=== PATIENT | male | born 1970 | race American Indian/Alaskan Native ===

== ENCOUNTER 2022-03-14 09:40 | Inpatient (IN) ==
[2022-03-14 11:45] LABS: Basophils # (auto) 0.06 K/uL (0-0.2); Basophils % (auto) 0.5 %; Eosinophils # (auto) 0.49 K/uL (0-0.5); Hematocrit (blood only) 38.5 % (42-52); Hemoglobin 12.6 g/dL (14.0-18.0); INR 1.2 (0.9-1.1); Immature Granulocytes % (auto) 0.8 %; Lymphocytes # (auto) 1.24 K/uL (1.2-3.4); Lymphocytes % (auto) 10.1 %; Mean Corpuscular Hemoglobin 25.9 pg (25-34); Mean Corpuscular Hgb Conc 32.7 g/dL (32-36); Mean Corpuscular Volume 79.2 fL (80-100); Mean Platelet Volume 10.3 fL (7.4-10.4); Monocytes # (auto) 1.14 K/uL (0.11-0.59); Monocytes % (auto) 9.3 %; Neutrophils # (auto) 9.27 K/uL (1.4-6.5); Neutrophils % (auto) 75.3 %; Partial Thromboplastin Time 27.6 Seconds (21.0-31.0); Platelet Count 210 K/uL (130-400); Prothrombin Time 12.6 Seconds (9.0-12.0); RDW Coefficient of Variation 14.4 % (11.5-14.5); RDW Standard Deviation 40.8 fL (36.4-46.3); Red Blood Count 4.86 M/uL (4.7-6.1)
[2022-03-14 11:51] LABS: Albumin Globulin Ratio 1.5 (0.9-2); Albumin Level 4.5 gm/dl (3.4-5.0); Bilirubin,Total 0.4 mg/dl (0.2-1.0); Calcium 9.3 mg/dl (8.5-10.1); Creatinine Clr Calc Pharmacy 102.4 ml/min; Est GFR (African American) 121.8 ml/min; Est GFR (Non-African American) 105.1 ml/min; Globulin 3.1 gm/dl (2.5-4.0); Potassium 4.2 mmol/L (3.5-5.1); Total Protein 7.6 gm/dl (6.0-8.3)
[2022-03-14] MEDS ORDERED: OPTIRAY 320 125ml IV ONE (13:12)
--- NOTE | 2022-03-14 13:41 | CT Scan Report ---
CT angio chest PE protocol CLINICAL HISTORY: Shortness of breath with exertion. COMPARISON STUDY: No previous studies for comparison. CT DOSE: 302.58 mGy.cm TECHNIQUE: CT Angio of the chest was performed.followed by image post processing with coronal, and s agittal MIP reformats. Contrast Volume: Optiray 320, 120 ml FINDINGS: Vasculature: Large intraluminal filling defects are present within the right and left main pulmonary arteries with extension into the lower lobe pulmonary arteries bilaterally. This also right upper lob e pulmonary emboli. Airway: The airway is clear. No endobronchial lesion is identified. Lungs: There is a large, solid, slightly spiculated left upper lobe mass measuring at least 3.6 x 3.3 cm. The findings are most characteristic of lung cancer. The remainder of the lungs are clear of acu te alveolar opacities, air bronchograms or additional pulmonary nodules. Pleura: There is no evidence for pleural effusion. There is no evidence for pneumothorax. Mediastinum: There is no evidence for pathologic adenopathy. There is no evidence for right heart str ain. The heart size is within normal limits. The thoracic aorta is within normal limits. There is no evidence for pericardial effusion. Upper abdomen:The adrenal glands were not fully included on this study. Osseous structures: There are multiple lytic lesions seen throughout the thoracic spine most charact eristic of metastatic disease. Impression: 1. Positive CTA for pulmonary emboli within both main pulmonary arteries, both lower lobe pulmonary a rteries and right upper lobe pulmonary artery. 2. No evidence for right heart strain. 3. 3.6 cm solid spiculated left upper lobe mass most characteristic of lung cancer. 4. Lytic lesions within the spine characteristic of metastatic bone disease. ACT 112: Negative or not required by law. Electronically signed by: Brandon Farfan M.D. 03/14/2022 1:38 PM
--- NOTE | 2022-03-14 14:09 | Ultrasound Report ---
US venous doppler LE RT CLINICAL HISTORY: Right lower extremity swelling, erythema and pain COMPARISON: None available at the time of this dictation. TECHNIQUE: Right lower extremity real-time compression venous ultrasound with Color Doppler imaging. Utilizing real-time ultrasonic imaging multiple real time high-resolution ultrasonic images with comp ression and noncompression maneuvers of the deep venous system in addition to color doppler imaging w ere performed from the common femoral vein through the proximal calf veins. FINDINGS: There is extensive thrombus present within the common femoral, superficial femoral, popliteal and pos terior tibial veins. This also superficial thrombophlebitis seen within the greater saphenous vein. Impression: Extensive deep venous thrombosis throughout the right lower extremity. ACT 112: Negative or not required by law. Electronically signed by: Brandon Farfan M.D. 03/14/2022 2:08 PM
[2022-03-14] MEDS ORDERED: Heparin IV Adult Wt-Based Standard WITH Bolus Protocol IV STA (14:29)
[2022-03-14] MEDS ORDERED: HEPARIN SOD (PORCINE) 1000 UNIT/ML IV ONE (14:46)
--- NOTE | 2022-03-14 15:06 | History & Physical Report ---
Date of Service March 14, 2022 Assessment & Plan (1) DVT (deep venous thrombosis): Plan: EXTENSIVE DVTs of the RLE involving most of the deep veins. There is associated extensive PEs on CT chest imaging. He has had dyspnea for 4+ weeks thus he has had VTE for some time. It appears he has lung cancer with metastatic disease which is the likely reason for his extensive DVTs/PEs. Already initiated on heparin drip by the ER. Will continue for now. Ultimately would recommend lovenox 1mg/kg BID after any procedures are completed this admission. Given the extent of his VTE I am uncertain if he is a DOAC candidate. (2) Pulmonary emboli: Plan: As seen on CTA chest. Extensive b/l. See #1 above. (3) Lung mass: Plan: CLAUDE spiculated mass highly concerning for lung cancer. There appear to be bony mets of the spine as well. Will obtain CT abd/pelvis with contrast to check for intra-abdominal metastatic disease as well. With respect to biopsy - possible sites include the actual CLAUDE mass itself vs a spinal met vs a liver met (if some are found) vs other. Will ask both pulmonary & heme/onc to see in consult. (4) Bone metastases: Plan: As seen on imaging. [place] prn pain. Low threshold to liberalize the pain meds as needed for optimal pain relief. (5) Cellulitis of leg, right: Plan: The erythema of the RLE is most likely due to DVT and superficial phlebitis. I cannot 100% exclude an early cellulitis, however. To be safe will add rocephin 2gm daily. Serial exams. Plan: Patient made aware of the DVTs, PEs, CLAUDE lung mass, and ?bone mets of the spine. All questions answered. Will await consults from oncology, pulmonary, etc. History of Present Illness Chief Complaint: dyspnea, right leg swelling/pain Primary Care Provider: NO PCP Very pleasant 51yo male with no PMH presents with 1-2 months of intermittent low back pain, 1-2 months of intermittent swelling of the b/l LEs (RLE >LLE), 1 month of dyspnea on exertion, and 2-3 days of worsening redness of the right leg. Had seen outpatient providers intermittently in the last 1-2 months for the back pain (chiropractor, accupuncture, etc) and the pain indeed did improve. His swelling of the legs also improved. However, about 10 days ago, the RLE began to swell again, and then became quite painful 2-3 days ago. He visited a local urgent care in [place] today and given his symptoms they advised urgent visitation to the [facility] ER. Just before my assessment imaging returned showing extensive RLE DVT, b/l PEs, and a CLAUDE lung mass. Heparin drip was initiated. Allergies Allergy/AdvReac Type Severity Reaction Status Date / Time No Known Allergies Allergy Unverified 03/14/22 11:56 Home Medications Medication Instructions Recorded Confirmed Type No Known Home Medications 03/14/22 03/14/22 History Past Med/Surg History Medical History (Updated 03/14/22 @ 18:15 by Suzanne Vazquez PA-C) No pertinent past medical history Surgical History (Updated 03/14/22 @ 15:42 by Guanakito Teixeira) No pertinent past surgical history Family History (Updated 03/14/22 @ 15:43 by Guanakito Teixeira) Father , age 82 COPD (chronic obstructive pulmonary disease) Mother , age 82 Myocardial infarction Social History (Updated 03/14/22 @ 15:43 by Guanakito Teixeira) Smoking Status: Never smoker Hx Alcohol Use: Yes Alcohol type: beer and wine Alcohol Intake Frequency: Monthly or Less Hx Substance Use: No Preferred Language: Bulgarian Communication Ability: Effective Client Service Representative Required: No Beliefs That Will Affect Care: None marital status: Current Living Situation: Spouse current occupational status: employed 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[employer]; 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 How many Children do You have: 0 Other Information That Helps Us Care for You: No Feels Safe at Home: Yes Safety Concerns: Feels Safe At This Time Assistive Devices: Glasses Assistive Devices Comment: reading Review of Systems Review of Systems: gen - no fevers or chills; no weight loss; appetite has been good eyes - no recent visual change HENT - no dysphagia, no URI symptoms CV - right lower chest wall pain with taking breaths, no substernal pain; no orthopnea; extensive edema of RLE pulm - no cough; ongoing FREEMAN x 1 month at minimum GI - no nausea, emesis or diarrhea; no blood per rectum - no dysuria musculo - intermittent low back pain x 1-2 months, then improved and essentially resolved now skin - redness and warmth right thigh x a few days psych - anxiety neuro - no radicular symptoms or numbness; "weakness" of RLE due to edema endo - no diabetes Physical Exam Physical Exam: gen - NAD, pleasant eyes - PERRL HENT - nose clear, mouth with MMM neck - supple, no lymphadenopathy, no masses CV - RRR, s1 s2, no murmur lungs - CTA b/l, no increased work of breathing abd - soft, NT, ND, BS+, no HSM ext - extensive edema of right thigh (and mild edema right st/ankle); warm to palpation right thigh with erythema; left leg grossly normal in appearance; pulses 2+ b/l skin - erythema of medial right thigh extending to anterior thigh; mild erythema tibial plateau region; warm to touch neuro - strength 5/5 x 4 exts, DTRs 2+ b/l psych - a/o x 3 lymph - no cervical lymph nodes b/l Results & Data Results & Data ([facility]) Vital Signs (Past 12 Hours) Vital Signs Temp Pulse Pulse Resp BP BP Pulse Ox 03/14/22 13:00 83 19 149/97 H 100 03/14/22 12:30 89 18 144/99 H 99 03/14/22 12:00 82 15 139/104 H 99 03/14/22 11:30 81 16 146/96 H 98 03/14/22 11:00 88 24 146/91 H 100 03/14/22 10:30 85 17 141/96 H 99 03/14/22 10:15 89 20 155/89 H 99 03/14/22 10:10 90 21 99 03/14/22 09:47 36.6 C 101 H 18 156/94 H 99 Laboratory Results Laboratory Results - last 24 hr 03/14/22 03/14/22 03/14/22 11:21 11:21 11:21 WBC 12.30 H RBC 4.86 Hgb 12.6 L Hct 38.5 L MCV 79.2 L MCH 25.9 MCHC 32.7 RDW Std Deviation 40.8 RDW Coeff of Marizol 14.4 Plt Count 210 MPV 10.3 Immature Gran % (Auto) 0.8 Neut % (Auto) 75.3 Lymph % (Auto) 10.1 [place] % (Auto) 9.3 Eos % (Auto) 4.0 Baso % (Auto) 0.5 Neut # (Auto) 9.27 H Lymph # (Auto) 1.24 [place] # (Auto) 1.14 H Eos # (Auto) 0.49 Baso # (Auto) 0.06 Immature Gran # (Auto) 0.10 H PT 12.6 H INR 1.2 H APTT 27.6 PTT Ratio 1.0 Sodium 138 Potassium 4.2 Chloride 101 Carbon Dioxide 29 Anion Gap 8 BUN 10 Creatinine 0.77 Est Cr Clr Drug Dosing 102.4 Est GFR ( Amer) 121.8 Est GFR (Non-Af Amer) 105.1 BUN/Creatinine Ratio 13.0 Glucose 81 Calcium 9.3 Total Bilirubin 0.4 AST 45 H ALT 49 Alkaline Phosphatase 329 H Total Protein 7.6 Albumin 4.5 Globulin 3.1 Albumin/Globulin Ratio 1.5 SARS-CoV-2, RNA, NAAT 03/14/22 03/14/22 16:02 21:20 WBC RBC Hgb Hct MCV MCH MCHC RDW Std Deviation RDW Coeff of Marizol Plt Count MPV Immature Gran % (Auto) Neut % (Auto) Lymph % (Auto) [place] % (Auto) Eos % (Auto) Baso % (Auto) Neut # (Auto) Lymph # (Auto) [place] # (Auto) Eos # (Auto) Baso # (Auto) Immature Gran # (Auto) PT INR APTT 98.2 H* PTT Ratio 3.6 Sodium Potassium Chloride Carbon Dioxide Anion Gap BUN Creatinine Est Cr Clr Drug Dosing Est GFR ( Amer) Est GFR (Non-Af Amer) BUN/Creatinine Ratio Glucose Calcium Total Bilirubin AST ALT Alkaline Phosphatase Total Protein Albumin Globulin Albumin/Globulin Ratio SARS-CoV-2, RNA, NAAT NEGATIVE Diagnostic Findings Chest CTA 03/14/22 10:51 CT angio chest PE protocol CLINICAL HISTORY: Shortness of breath with exertion. COMPARISON STUDY: No previous studies for comparison. CT DOSE: 302.58 mGy.cm TECHNIQUE: CT Angio of the chest was performed.followed by image post processing with coronal, and sagittal MIP reformats. Contrast Volume: Optiray 320, 120 ml FINDINGS: Vasculature: Large intraluminal filling defects are present within the right and left main pulmonary arteries with extension into the lower lobe pulmonary arteries bilaterally. This also right upper lobe pulmonary emboli. Airway: The airway is clear. No endobronchial lesion is identified. Lungs: There is a large, solid, slightly spiculated left upper lobe mass measuring at least 3.6 x 3.3 cm. The findings are most characteristic of lung c ancer. The remainder of the lungs are clear of acute alveolar opacities, air bronchograms or additional pulmonary nodules. Pleura: There is no evidence for pleural effusion. There is no evidence for pneumothorax. Mediastinum: There is no evidence for pathologic adenopathy. There is no evidence for right heart strain. The heart size is within normal limits. The thoracic aorta is within normal limits. There is no evidence for pericardial effusion. Upper abdomen:The adrenal glands were not fully included on this study. Osseous structures: There are multiple lytic lesions seen throughout the thoracic spine most characteristic of metastatic disease. Impression: 1. Positive CTA for pulmonary emboli within both main pulmonary arteries, both lower lobe pulmonary arteries and right upper lobe pulmonary artery. 2. No evidence for right heart strain. 3. 3.6 cm solid spiculated left upper lobe mass most characteristic of lung cancer. 4. Lytic lesions within the spine characteristic of metastatic bone disease. ACT 112: Negative or not required by law. Electronically signed by: Brandon Farfan M.D. 03/14/2022 1:38 PM Venous Doppler Study 03/14/22 10:51 US venous doppler LE RT CLINICAL HISTORY: Right lower extremity swelling, erythema and pain COMPARISON: None available at the time of this dictation. TECHNIQUE: Right lower extremity real-time compression venous ultrasound with Color Doppler imaging. Utilizing real-time ultrasonic imaging multiple real time high-resolution ultrasonic images with compression and noncompression maneuvers of the deep venous system in addition to color doppler imaging were performed from the common femoral vein through the proximal calf veins. FINDINGS: There is extensive thrombus present within the common femoral, superficial femoral, popliteal and posterior tibial veins. This also superficial thrombophlebitis seen within the greater saphenous vein. Impression: Extensive deep venous thrombosis throughout the right lower extremity. ACT 112: Negative or not required by law. Electronically signed by: Brandon Farfan M.D. 03/14/2022 2:08 PM EKG - my reading -- NSR, no ST changes Code Status & VTE Plan Code Status full code PG Care Time/CCT Total # of Minutes Spent Total Time Spent with Patient: Total time spent is greater than 50% in coordination of care (as documented) at patient's floor/unit and/or counseling patient: Coding Level of Care Code 87053 Initial Inpt Care Lvl 2 Diagnoses DVT (deep venous thrombosis) I82.409 Pulmonary emboli I26.99 Lung mass R91.8 Bone metastases C79.51 Cellulitis of leg, right L03.115
[2022-03-14] MEDS: HEPARIN SODIUM/DEXTROSE 25,000 UNITS/500 ML BAG IV SCH (15:18)
[2022-03-14] MEDS: Heparin IV Adult Wt-Based Standard WITH Bolus Protocol IV SCH ×3 (15:27→19:01)
--- NOTE | 2022-03-14 17:01 | Emergency Department Note ---
Impression & Plan DVT (deep venous thrombosis), Pulmonary emboli, Lung mass, Cellulitis of leg, right ED Provider Note CHIEF COMPLAINT: Right lower extremity pain, redness and swelling HISTORY OF PRESENT ILLNESS: Davin Ibanez is a 51 year old male with no significant past medical history who presents to the Emergency Department for evaluation of pain, redness and swelling to his right lower extremity which has become worse over the past 10 days. Prior to the time of onset, the patient states that he was having pain in his right hip for which he followed with a PCP. He did have x-rays ordered but has not yet had them taken. Since then, the patient states that his hip pain has seemed to have improved, however, he has now developed pain, redness and swelling in his left groin radiating into his medial thigh, down to his ankle. Currently, he rates his discomfort as a 6/10 which worsens with weight bearing activity. He has not attempted to take any medications for his discomfort. The patient does state that he has also been feeling more short of breath when attempting to exert himself over the past few weeks as well. He denies having dyspnea or specific chest pain. He also denies recent headaches, lightheadedness/dizziness, fevers/chills, palpitations, abdominal pain, nausea/vomiting, diarrhea or urinary symptoms. The patient does state that he has been sitting for long periods at a time (about 3.5 hours) while driving in the car for work quite often but otherwise denies prolonged periods of immobilization. He does not smoke. No known personal history of blood clots. REVIEW OF SYSTEMS: 10 systems were reviewed and were negative unless otherwise stated in HPI as above PHYSICAL EXAM: VITALS: Vitals are noted on the nurse's note and reviewed by myself. Hypertensive and mildly tachycardic, additional vital signs stable. General: Resting in bed, no acute distress HEENT: Normocephalic, atraumatic, PERRL, EOMI, mucous membranes moist, oropharynx clear Neck: Supple, no lymphadenopathy, non-tender Resp: Good inspiratory effort on room air, lung sounds clear bilaterally, chest wall non-tender CV: Mildly tachycardic rate, regular rhythm, normal S1-S2, peripheral pulses palpated Abd: Soft, non-tender MSK/Integumentary: With attention to the RLE, there is edema extending from the thigh down to the ankle with an area of erythema and warmth over the medial thigh, tender to palpation. ROM intact but with some discomfort, sensation and d/p pulse intact. No other skin changes, moving all other extremities without apparent pain or difficulty Neuro: Awake, alert and oriented x 3, interacting and answering questions appropriately Differential diagnosis includes musculoskeletal, DVT, cellulitis, PE, CHF, mass, carcinoma, vasculitis, venous insufficiency, among others were considered. EMERGENCY DEPARTMENT COURSE: Physical exam and history were performed. Nursing triage notes, EMR, and medication list were personally reviewed. Patient appears to have pain, redness and swelling to his right lower extremity which has been worsening over the past 10 days. He also notes exertional shortness of breath over the past few weeks as well. Additional history as described above. See physical exam as noted above. The patient was offered pain medication but declined. EKG was obtained and showed normal sinus rhythm at 83 bpm. No concern for ectopy or acute ischemic change. No previous studies available for comparison. IV access was established. Labs were obtained and reviewed by myself as below. Of note, he does have leukocytosis with a WBC of 12.30. Mild anemia with hemoglobin 12.6. PT was elevated at 12.6 seconds and INR elevated at 1.2. Electrolytes WNL. Renal indices stable. LFTs nondiagnostic. CTA chest was obtained and reviewed by radiologist and myself as below. Imaging did show pulmonary emboli within both main pulmonary arteries, both lower lobe pulmonary arteries and right upper lobe pulmonary artery. No evidence for right heart strain. There is also a 3.6 cm solid spiculated left upper lobe mass most characteristic of lung cancer. There is also lytic lesions within the spine characteristic of metastatic bone disease. Venous Doppler ultrasound of the right lower extremity was also obtained and showed an extensive deep venous thrombosis throughout the right lower extremity. Upon reevaluation, the patient was doing well. I discussed the results of the above findings with him at bedside including the new diagnosis of the bilateral PEs, lung mass, lytic lesions and RLE DVT. He was started on a heparin drip to initiate treatment. I then contacted Dr. Teixeira of the [facility] hospitalist group. He agreed to evaluate the patient for further management. The patient verbalized his understanding and agreement with the treatment plan as above. The chart was completed utilizing [employer] Voice Recognition Software. Grammatical errors, random word insertions, pronoun errors, and incomplete sentences are an occasional consequence of this system due to software limitations, ambient noise, and hardware issues. Any formal questions or concerns about the content, text, or information contained within the body of th is dictation should be directly addressed to the provider for clarification. Past Med/Surg History Medical History (Updated 03/14/22 @ 18:15 by Suzanne Vazquez PA-C) No pertinent past medical history Surgical History (Updated 03/14/22 @ 15:42 by Guanakito Teixeira) No pertinent past surgical history Family History (Updated 03/14/22 @ 15:43 by Guanakito Teixeira) Father , age 82 COPD (chronic obstructive pulmonary disease) Mother , age 82 Myocardial infarction Social History (Updated 03/14/22 @ 15:43 by Guanakito Teixeira) Smoking Status: Never smoker Hx Alcohol Use: Yes Alcohol type: wine Alcohol Intake Frequency: Monthly or Less Preferred Language: Tajik marital status: Current Living Situation: Spouse current occupational status: employed 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[employer]; 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 How many Children do You have: 0 Feels Safe at Home: Yes Allergies Allergies Allergy/AdvReac Type Severity Reaction Status Date / Time No Known Allergies Allergy Unverified 03/14/22 11:56 Home Meds Home Medications Medication Instructions Recorded Confirmed No Known Home Medications 03/14/22 03/14/22 Results & Data (ED) Vital Signs Vital Signs - 24 hr 03/14/22 09:47 03/14/22 10:10 03/14/22 10:15 Temperature 36.6 C Temperature Source Temporal Artery Scan Pulse Rate 101 H 90 Pulse Rate [Apical] 89 Pulse Rate from SpO2 Sensor 90 Respiratory Rate 18 21 20 Respiratory Effort / Characteristics Non-Labored Spontaneous Respiratory Depth Normal Respiratory Pattern Regular Blood Pressure 156/94 H Blood Pressure [Right Arm] 155/89 H Blood Pressure Mean 114 Blood Pressure Mean [Right Arm] 111 Blood Pressure Position Sitting Pulse Oximetry 99 99 99 Oxygen Delivery Method Room Air Room Air Sepsis Recent Fever Within 48 Hours No Sepsis New/Unexplained Change in Mental Status No Sepsis Action Taken by Nursing No Action Required 03/14/22 10:30 03/14/22 11:00 03/14/22 11:30 Temperature Temperature Source Pulse Rate 85 88 81 Pulse Rate [Apical] Pulse Rate from SpO2 Sensor 92 H 91 H 81 Respiratory Rate 17 24 16 Respiratory Effort / Characteristics Respiratory Depth Respiratory Pattern Blood Pressure 141/96 H 146/91 H 146/96 H Blood Pressure [Right Arm] Blood Pressure Mean 111 109 112 Blood Pressure Mean [Right Arm] Blood Pressure Position Pulse Oximetry 99 100 98 Oxygen Delivery Method Sepsis Recent Fever Within 48 Hours Sepsis New/Unexplained Change in Mental Status Sepsis Action Taken by Nursing 03/14/22 12:00 03/14/22 12:30 03/14/22 13:00 Temperature Temperature Source Pulse Rate 82 89 83 Pulse Rate [Apical] Pulse Rate from SpO2 Sensor 84 92 H 93 H Respiratory Rate 15 18 19 Respiratory Effort / Characteristics Respiratory Depth Respiratory Pattern Blood Pressure 139/104 H 144/99 H 149/97 H Blood Pressure [Right Arm] Blood Pressure Mean 115 114 114 Blood Pressure Mean [Right Arm] Blood Pressure Position Pulse Oximetry 99 99 100 Oxygen Delivery Method Sepsis Recent Fever Within 48 Hours Sepsis New/Unexplained Change in Mental Status Sepsis Action Taken by Nursing Laboratory Data Result diagrams: 03/14/22 11:21 03/14/22 11:21 Lab Results 03/14/22 03/14/22 03/14/22 Range/Units 11:21 11:21 11:21 WBC 12.30 H (4.8-10.8) K/uL RBC 4.86 (4.7-6.1) M/uL Hgb 12.6 L (14.0-18.0) g/dL Hct 38.5 L (42-52) % MCV 79.2 L (80-100) fL MCH 25.9 (25-34) pg MCHC 32.7 (32-36) g/dL RDW Std Deviation 40.8 (36.4-46.3) fL RDW Coeff of Marizol 14.4 (11.5-14.5) % Plt Count 210 (130-400) K/uL MPV 10.3 (7.4-10.4) fL Immature Gran % (Auto) 0.8 % Neut % (Auto) 75.3 % Lymph % (Auto) 10.1 % [place] % (Auto) 9.3 % Eos % (Auto) 4.0 % Baso % (Auto) 0.5 % Neut # (Auto) 9.27 H (1.4-6.5) K/uL Lymph # (Auto) 1.24 (1.2-3.4) K/uL [place] # (Auto) 1.14 H (0.11-0.59) K/uL Eos # (Auto) 0.49 (0-0.5) K/uL Baso # (Auto) 0.06 (0-0.2) K/uL Immature Gran # (Auto) 0.10 H (0.00-0.02) K/uL PT 12.6 H (9.0-12.0) Seconds INR 1.2 H (0.9-1.1) APTT 27.6 (21.0-31.0) Seconds PTT Ratio 1.0 Sodium 138 (136-145) mmol/L Potassium 4.2 (3.5-5.1) mmol/L Chloride 101 (98-107) mmol/L Carbon Dioxide 29 (21-32) mmol/L Anion Gap 8 (3-11) BUN 10 (6-23) mg/dl Creatinine 0.77 (0.6-1.4) mg/dl Est Cr Clr Drug Dosing 102.4 ml/min Est GFR ( Amer) 121.8 ml/min Est GFR (Non-Af Amer) 105.1 ml/min BUN/Creatinine Ratio 13.0 (10-20) Glucose 81 (70-99(Fasting)) mg/dl Calcium 9.3 (8.5-10.1) mg/dl Total Bilirubin 0.4 (0.2-1.0) mg/dl AST 45 H (13-39) U/L ALT 49 (7-52) U/L Alkaline Phosphatase 329 H (34-104) U/L Total Protein 7.6 (6.0-8.3) gm/dl Albumin 4.5 (3.4-5.0) gm/dl Globulin 3.1 (2.5-4.0) gm/dl Albumin/Globulin Ratio 1.5 (0.9-2) SARS-CoV-2, RNA, NAAT (NEGATIVE) 03/14/22 Range/Units 16:02 WBC (4.8-10.8) K/uL RBC (4.7-6.1) M/uL Hgb (14.0-18.0) g/dL Hct (42-52) % MCV (80-100) fL MCH (25-34) pg MCHC (32-36) g/dL RDW Std Deviation (36.4-46.3) fL RDW Coeff of Marizol (11.5-14.5) % Plt Count (130-400) K/uL MPV (7.4-10.4) fL Immature Gran % (Auto) % Neut % (Auto) % Lymph % (Auto) % [place] % (Auto) % Eos % (Auto) % Baso % (Auto) % Neut # (Auto) (1.4-6.5) K/uL Lymph # (Auto) (1.2-3.4) K/uL [place] # (Auto) (0.11-0.59) K/uL Eos # (Auto) (0-0.5) K/uL Baso # (Auto) (0-0.2) K/uL Immature Gran # (Auto) (0.00-0.02) K/uL PT (9.0-12.0) Seconds INR (0.9-1.1) APTT (21.0-31.0) Seconds PTT Ratio Sodium (136-145) mmol/L Potassium (3.5-5.1) mmol/L Chloride (98-107) mmol/L Carbon Dioxide (21-32) mmol/L Anion Gap (3-11) BUN (6-23) mg/dl Creatinine (0.6-1.4) mg/dl Est Cr Clr Drug Dosing ml/min Est GFR ( Amer) ml/min Est GFR (Non-Af Amer) ml/min BUN/Creatinine Ratio (10-20) Glucose (70-99(Fasting)) mg/dl Calcium (8.5-10.1) mg/dl Total Bilirubin (0.2-1.0) mg/dl AST (13-39) U/L ALT (7-52) U/L Alkaline Phosphatase (34-104) U/L Total Protein (6.0-8.3) gm/dl Albumin (3.4-5.0) gm/dl Globulin (2.5-4.0) gm/dl Albumin/Globulin Ratio (0.9-2) SARS-CoV-2, RNA, NAAT NEGATIVE (NEGATIVE) Administered Medications Heparin Sodium/Dextrose (Heparin Sodium/Dextrose) 25,000 units in 500 mls @ 24 mls/hr IV .[id number] [facility]; Protocol Stop: 04/13/22 14:59 Last Admin: 03/14/22 15:18 Dose: 1,200 units/hr, 24 mls/hr Documented by: [id number] Cosigned by: [id number] Discontinued Medications Heparin Sodium (Porcine) (Heparin Sod (Porcine) 1000 Unit/Ml) 1 units IV NOW ONE Stop: 03/14/22 14:47 Last Admin: 03/14/22 15:18 Dose: 5,000 units Documented by: [id number] Cosigned by: [id number] Heparin Sodium/Dextrose (Heparin Iv Adult Wt-Based Standard With Bolus Protocol) 1 ea IV NOW STA; Protocol Stop: 03/14/22 14:30 Last Admin: 03/14/22 15:25 Dose: Not Given Documented by: [id number] Heparin Sodium/Dextrose (Heparin Iv Adult Wt-Based Standard With Bolus Protocol) 1 ea IV Q20M SHEREEN; Protocol Stop: 04/13/22 14:31 Last Admin: 03/14/22 16:43 Dose: Not Given Documented by: [id number] Admin: 03/14/22 15:27 Dose: Not Given Documented by: [id number] Admin: 03/14/22 15:27 Dose: Not Given Documented by: [id number] Admin: 03/14/22 15:27 Dose: Not Given Documented by: [id number] Ioversol (Optiray 320 125ml) 120 ml IV ONCE ONE Stop: 03/14/22 13:13 Last Admin: 03/14/22 13:12 Dose: 120 ml Documented by: [id number] Imaging Data Radiologist's Impression: Chest CTA 03/14/22 10:51 CT angio chest PE protocol CLINICAL HISTORY: Shortness of breath with exertion. COMPARISON STUDY: No previous studies for comparison. CT DOSE: 302.58 mGy.cm TECHNIQUE: CT Angio of the chest was performed.followed by image post processing with coronal, and sagittal MIP reformats. Contrast Volume: Optiray 320, 120 ml FINDINGS: Vasculature: Large intraluminal filling defects are present within the right and left main pulmonary arteries with extension into the lower lobe pulmonary arteries bilaterally. This also right upper lobe pulmonary emboli. Airway: The airway is clear. No endobronchial lesion is identified. Lungs: There is a large, solid, slightly spiculated left upper lobe mass measuring at least 3.6 x 3.3 cm. The findings are most characteristic of lung cancer. The remainder of the lungs are clear of acute alveolar opacities, air bronchograms or additional pulmonary nodules. Pleura: There is no evidence for pleural effusion. There is no evidence for pneumothorax. Mediastinum: There is no evidence for pathologic adenopathy. There is no evidence for right heart strain. The heart size is within normal limits. The thoracic aorta is within normal limits. There is no evidence for pericardial e ffusion. Upper abdomen:The adrenal glands were not fully included on this study. Osseous structures: There are multiple lytic lesions seen throughout the thoracic spine most characteristic of metastatic disease. Impression: 1. Positive CTA for pulmonary emboli within both main pulmonary arteries, both lower lobe pulmonary arteries and right upper lobe pulmonary artery. 2. No evidence for right heart strain. 3. 3.6 cm solid spiculated left upper lobe mass most characteristic of lung cancer. 4. Lytic lesions within the spine characteristic of metastatic bone disease. ACT 112: Negative or not required by law. Electronically signed by: Brandon Farfan M.D. 03/14/2022 1:38 PM Venous Doppler Study 03/14/22 10:51 US venous doppler LE RT CLINICAL HISTORY: Right lower extremity swelling, erythema and pain COMPARISON: None available at the time of this dictation. TECHNIQUE: Right lower extremity real-time compression venous ultrasound with Color Doppler imaging. Utilizing real-time ultrasonic imaging multiple real time high-resolution ultrasonic images with compression and noncompression maneuvers of the deep venous system in addition to color doppler imaging were performed from the common femoral vein through the proximal calf veins. FINDINGS: There is extensive thrombus present within the common femoral, superficial femoral, popliteal and posterior tibial veins. This also superficial thrombophlebitis seen within the greater saphenous vein. Impression: Extensive deep venous thrombosis throughout the right lower extremity. ACT 112: Negative or not required by law. Electronically signed by: Brandon Farfan M.D. 03/14/2022 2:08 PM Discharge Plan Visit Data Chief Complaint: Swelling/Edema to Extremity Stated Complaint: RT LEG SWELLING ED Provider: Juan Ramirez ED Midlevel Provider: Suzanne Vazquez Discharge Problem: DVT (deep venous thrombosis), Pulmonary emboli, Lung mass, Cellulitis of leg, right Patient Disposition: Admitted As Inpatient Forms Stand Alone Forms: [facility] Prescriptions Prescriptions: No Action No Known Home Medications RF: 0 Referrals Referrals: PCP,NO [Primary Care Provider] -
[2022-03-14] MEDS ORDERED: ZOLPIDEM TARTRATE 5 MG TAB PO PRN (18:53)
[2022-03-14] MEDS ORDERED: ACETAMINOPHEN 325 MG TAB PO PRN (18:53)
[2022-03-14] MEDS ORDERED: HYDROCODONE/ACETAMOPHEN 5/325MG TAB PO PRN (18:53)
[2022-03-14] MEDS ORDERED: SODIUM CHLORIDE 0.9% 1000ML 1,000 ML IV SCH (18:53)
[2022-03-14] MEDS ORDERED: ONDANSETRON INJ 2 MG/ML 2 ML VIAL IV PRN (18:53)
[2022-03-14] MEDS: cefTRIAXone SODIUM 2,000 MG in DEXTROSE 5% 50 ML IV SCH (20:12)
[2022-03-14 21:53] LABS: Partial Thromboplastin Ratio 3.6
[2022-03-14] MEDS ORDERED: OPTIRAY 320 100ml IV ONE (21:55)
[2022-03-14 22:29] LABS: Partial Thromboplastin Time 98.2 Seconds (21.0-31.0)
--- NOTE | 2022-03-14 22:42 | Communication Note ---
Date of Service: March 14, [address] Trevino with [employer] to inform that patient's CT A/P showed metastases to liver and spine. Also found acute ileofemoral DVT. Patient already on heparin drip and aware of primary cancer as well as its metastatic nature. Resident Activity Tracking Resident Involvement: Resident Care Provided Care Provided: [facility] Medicine
[2022-03-15 05:53] LABS: Hematocrit (blood only) 35.7 % (42-52); Hemoglobin 11.8 g/dL (14.0-18.0); Mean Corpuscular Hgb Conc 33.1 g/dL (32-36); Mean Corpuscular Volume 78.6 fL (80-100); Mean Platelet Volume 9.7 fL (7.4-10.4); Platelet Count 230 K/uL (130-400); RDW Coefficient of Variation 14.4 % (11.5-14.5); RDW Standard Deviation 40.4 fL (36.4-46.3); Red Blood Count 4.54 M/uL (4.7-6.1); White Blood Count 11.49 K/uL (4.8-10.8)
[2022-03-15 06:15] LABS: BUN Creatinine Ratio 14.7 (10-20); Calcium 8.8 mg/dl (8.5-10.1); Creatinine Clr Calc Pharmacy 105.2 ml/min; Est GFR (African American) 123.1 ml/min; Est GFR (Non-African American) 106.2 ml/min; Potassium 4.1 mmol/L (3.5-5.1)
[2022-03-15 06:17] LABS: Partial Thromboplastin Ratio 2.4
[2022-03-15 06:22] LABS: Partial Thromboplastin Time 65.5 Seconds (21.0-31.0)
--- NOTE | 2022-03-15 08:15 | Pulmonary Consultation ---
Date of Consultation March 15, 2022 Assessment & Plan (1) Lung mass: (2) Pulmonary emboli: (3) DVT (deep venous thrombosis): Impression: 51-year-old male without prior medical history who is a non- smoker presenting now with acute DVT and PE with lung mass, bone lesions, and hepatic lesions concerning for malignancy. Recommendations: 1. I had a long and extensive discussion with the patient at bedside. Advised him that he has 2 issues, acute PE and DVT and lung mass with bony lesions and hepatic lesions concerning for malignancy. These will be addressed independently. 2. Acute PE DVT: Patient is currently on heparin. Suspect hypercoagulable state associated with potential malignancy. Okay to use heparin for now but would transition to DOAC once procedures are completed. Will likely need lifelong anticoagulation. Would be reasonable to check biomarkers for risk factors including troponin and BNP. Given his hemodynamic stability, I do not think we need to pursue an echocardiogram. Hematology oncology has been consulted. 3. Lung lesion with mediastinal adenopathy and liver and bone lesions. Would pursue biopsy of the liver as this would provide diagnosis as well as staging information and be less risky than bronchoscopy in the setting of acute PE. Reviewed with radiology and they feel the lesions are amenable as long as they can be visualized with ultrasound. 4. The patient should have MRI of the brain with contrast. He states that he is claustrophobic and would likely need anesthesia to complete this. Given the extensive nature of his disease I would recommend an MRI however if we are unable to get this, CT with contrast may be an alternative option. Deferred to primary service ordered this. 5. Patient will require outpatient PET scanning. Thanks for the opportunity participating in the care of this patient. Feel free to contact us with questions or concerns History of Present Illness Attending Physician: Guanakito Teixeira History of Present Illness Asked by hospitalist to evaluate this patient with DVT/PE likely in the setting of malignancy as well as lung lesion. History is obtained from discussion with the patient reviewed electronic medical record and discussion with the admitting hospitalist. Patient is a 51-year-old male without significant past medical history. He is a lifelong non-smoker but did have secondhand tobacco exposure while growing up. Patient states that about a month ago he developed some swelling in his right leg. He was seen by a chiropractor and had several adjustments performed and states the swelling and discomfort improved. About 10 days ago it returned. At the insistence of his he went to an urgent care who referred him to the emergency room. Acute DVT was identified on ultrasound. CT angiogram performed demonstrated filling defects consistent with acute PE without right heart strain and an incidentally noted left upper lobe lung mass was identified. Patient was initiated on heparin and admitted to the hospitalist service. 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 He has no occupational or environmental exposures. He denies any unintentional weight loss or other constitutional symptoms. He has experiencing shortness of breath going on for about 6 weeks. He states that if he walks around the grocery store he feels somewhat winded and fatigued. He is never coughed up blood. He denies fevers chills night sweats or other constitutional symptoms. No family history of thromboembolic disease that he is aware of. No other infectious symptoms. Allergies Allergy/AdvReac Type Severity Reaction Status Date / Time No Known Allergies Allergy Unverified 03/14/22 11:56 Home Medications Medication Instructions Recorded Confirmed Type No Known Home Medications 03/14/22 03/14/22 History Patient History Medical History (Updated 03/14/22 @ 18:15 by Suzanne Vazquez PA-C) No pertinent past medical history Surgical History (Updated 03/14/22 @ 15:42 by Guanakito Teixeira) No pertinent past surgical history Family History (Updated 03/14/22 @ 15:43 by Guanakito Teixeira) Father , age 82 COPD (chronic obstructive pulmonary disease) Mother , age 82 Myocardial infarction Social History (Updated 03/14/22 @ 15:43 by Guanakito Teixeira) Smoking Status: Never smoker Hx Alcohol Use: Yes Alcohol type: beer and wine Alcohol Intake Frequency: Monthly or Less Hx Substance Use: No Preferred Language: Malay Communication Ability: Effective Ball Point Splitter Required: No Beliefs That Will Affect Care: None marital status: Current Living Situation: Spouse current occupational status: employed 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[employer]; 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 I have no additions or deletions Physical Exam Physical Exam: gen - NAD, pleasant eyes - PERRL HENT - nose clear, mouth with MMM neck - supple, no lymphadenopathy, no masses CV - RRR, s1 s2, no murmur lungs - CTA b/l, no increased work of breathing abd - soft, NT, ND, BS+, no HSM ext - extensive edema of right thigh (and mild edema right st/ankle); warm to palpation right thigh with erythema; left leg grossly normal in appearance; pulses 2+ b/l skin - erythema of medial right thigh extending to anterior thigh; mild erythema tibial plateau region; warm to touch neuro - strength 5/5 x 4 exts, DTRs 2+ b/l psych - a/o x 3 lymph - no cervical lymph nodes b/l Results & Data Results & Data ([facility]) Vital Signs (Past 12 Hours) Vital Signs Temp Pulse Pulse Resp BP Pulse Ox 03/15/22 07:51 36.9 C 94 H 18 126/83 99 03/15/22 03:43 37.2 C 86 16 134/83 97 03/14/22 23:50 37.1 C 91 H 16 143/89 H 97 03/14/22 22:18 96 H Critical Care Results & Data Vital Signs (Past 12 Hours) Vital Signs Temp Pulse Pulse Resp BP Pulse Ox 03/15/22 07:51 36.9 C 94 H 18 126/83 99 03/15/22 03:43 37.2 C 86 16 134/83 97 03/14/22 23:50 37.1 C 91 H 16 143/89 H 97 03/14/22 22:18 96 H Lab & Micro Results (Past 24 Hours) RBC 4.54 M/uL (4.7-6.1) L 03/15/22 WBC 11.49 K/uL (4.8-10.8) H 03/15/22 Hgb 11.8 g/dL (14.0-18.0) L 03/15/22 Hct 35.7 % (42-52) L 03/15/22 MCV 78.6 fL (80-100) L 03/15/22 MCH 26.0 pg (25-34) 03/15/22 MCHC 33.1 g/dL (32-36) 03/15/22 RDW Standard Deviation 40.4 fL (36.4-46.3) 03/15/22 RDW Coefficient of Variation 14.4 % (11.5-14.5) 03/15/22 Plt Count 230 K/uL (130-400) 03/15/22 MPV 9.7 fL (7.4-10.4) 03/15/22 Neutrophils (%) (Auto) 75.3 % 03/14/22 Lymphocytes (%) (Auto) 10.1 % 03/14/22 Monocytes # (Auto) 1.14 K/uL (0.11-0.59) H 03/14/22 Eosinophils # (Auto) 0.49 K/uL (0-0.5) 03/14/22 Immature Granulocyte % (Auto) 0.8 % 03/14/22 Neutrophils # (Auto) 9.27 K/uL (1.4-6.5) H 03/14/22 Lymphocytes # (Auto) 1.24 K/uL (1.2-3.4) 03/14/22 Monocytes # (Auto) 1.14 K/uL (0.11-0.59) H 03/14/22 Eosinophils # (Auto) 0.49 K/uL (0-0.5) 03/14/22 Basophils # (Auto) 0.06 K/uL (0-0.2) 03/14/22 Immature Granulocyte # (Auto) 0.10 K/uL (0.00-0.02) H 03/14/22 Na 137 mmol/L (136-145) 03/15/22 K 4.1 mmol/L (3.5-5.1) 03/15/22 Cl 103 mmol/L (98-107) 03/15/22 CO2 26 mmol/L (21-32) 03/15/22 Anion Gap 8 (3-11) 03/15/22 BUN 11 mg/dl (6-23) 03/15/22 Creatinine 0.75 mg/dl (0.6-1.4) 03/15/22 Estimated GFR ( Amer) 123.1 ml/min 03/15/22 Estimated GFR (Non-Af Amer) 106.2 ml/min 03/15/22 BUN/Creatinine Ratio 14.7 (10-20) 03/15/22 Glu 97 mg/dl (70-99(Fasting)) 03/15/22 Ca 8.8 mg/dl (8.5-10.1) 03/15/22 Total Bilirubin 0.4 mg/dl (0.2-1.0) 03/14/22 AST 45 U/L (13-39) H 03/14/22 ALT 49 U/L (7-52) 03/14/22 Alkaline Phosphatase 329 U/L (34-104) H 03/14/22 TP 7.6 gm/dl (6.0-8.3) 03/14/22 Albumin 4.5 gm/dl (3.4-5.0) 03/14/22 Globulin 3.1 gm/dl (2.5-4.0) 03/14/22 Albumin/Globulin Ratio 1.5 (0.9-2) 03/14/22 Calcium Level 8.8 mg/dl (8.5-10.1) 03/15/22 05:31 03/15/22 Prothromb Time International Ratio 1.2 (0.9-1.1) H 03/14/22 11:21 03/14/22 Diagnostic Findings (Past 24 Hours) Chest CTA 03/14/22 10:51 CT angio chest PE protocol CLINICAL HISTORY: Shortness of breath with exertion. COMPARISON STUDY: No previous studies for comparison. CT DOSE: 302.58 mGy.cm TECHNIQUE: CT Angio of the chest was performed.followed by image post processing with coronal, and sagittal MIP reformats. Contrast Volume: Optiray 320, 120 ml FINDINGS: Vasculature: Large intraluminal filling defects are present within the right and left main pulmonary arteries with extension into the lower lobe pulmonary arteries bilaterally. This also right upper lobe pulmonary emboli. Airway: The airway is clear. No endobronchial lesion is identified. Lungs: There is a large, solid, slightly spiculated left upper lobe mass measuring at least 3.6 x 3.3 cm. The findings are most characteristic of lung cancer. The remainder of the lungs are clear of acute alveolar opacities, air bronchograms or additional pulmonary nodules. Pleura: There is no evidence for pleural effusion. There is no evidence for pneumothorax. Mediastinum: There is no evidence for pathologic adenopathy. There is no evidence for right heart strain. The heart size is within normal limits. The thoracic aorta is within normal limits. There is no evidence for pericardial effusion. Upper abdomen:The adrenal glands were not fully included on this study. Osseous structures: There are multiple lytic lesions seen throughout the thoracic spine most characteristic of metastatic disease. Impression: 1. Positive CTA for pulmonary emboli within both main pulmonary arteries, both lower lobe pulmonary arteries and right upper lobe pulmonary artery. 2. No evidence for right heart strain. 3. 3.6 cm solid spiculated left upper lobe mass most characteristic of lung cancer. 4. Lytic lesions within the spine characteristic of metastatic bone disease. ACT 112: Negative or not required by law. Electronically signed by: Brandon Farfan M.D. 03/14/2022 1:38 PM Venous Doppler Study 03/14/22 10:51 US venous doppler LE RT CLINICAL HISTORY: Right lower extremity swelling, erythema and pain COMPARISON: None available at the time of this dictation. TECHNIQUE: Right lower extremity real-time compression venous ultrasound with Color Doppler imaging. Utilizing real-time ultrasonic imaging multiple real time high-resolution ultrasonic images with compression and noncompression maneuvers of the deep venous system in addition to color doppler imaging were performed from the common femoral vein through the proximal calf veins. FINDINGS: There is extensive thrombus present within the common femoral, superficial femoral, popliteal and posterior tibial veins. This also superficial thrombophlebitis seen within the greater saphenous vein. Impression: Extensive deep venous thrombosis throughout the right lower extremity. ACT 112: Negative or not required by law. Electronically signed by: Brandon Farfan M.D. 03/14/2022 2:[address] of the abdomen reviewed. Radiology read is pending. There are multiple splenic and hepatic hypodensities identified concerning for potential metastatic disease I & O Totals 24 Hours 03/14/22 03/15/22 03/16/22 06:59 06:59 06:59 Intake Total 568.55 / 568.55 Balance 568.55 / 568.55 Cumulative 03/14/22 09:40 thru 03/15/22 06:56 Intake Total 568.55 Balance 568.55 RT Ventilator Mngmt (Last Documented) Ventilator Ordered Settings Respiratory Rate 18 03/15/22 07:51 Ventilator - PT Measurements Respiratory Rate 18 PG Care Time/CCT Total # of Minutes Spent Total Time Spent with Patient: Total time spent is greater than 50% in coordination of care (as documented) at patient's floor/unit and/or counseling patient: Prolonged Care Time 82 min reviewing case, discussing with radiology and hospitalist as well as with patient at bedside Coding Level of Care Code 30964 Inpt Consult Level 5 Diagnoses Lung mass R91.8 Pulmonary emboli I26.99 DVT (deep venous thrombosis) I82.409
--- NOTE | 2022-03-15 08:28 | CT Scan Report ---
ABDOMEN AND PELVIS CT WITH IV CONTRAST CT DOSE: 277.26 mGy.cm HISTORY: Acute DVT with left upper lobe bronchogenic malignancy. likely stage 4 lung ca; eval distan t mets TECHNIQUE: Multiaxial CT images of the abdomen and pelvis were performed following the IV administrat ion of 93 cc of Optiray, A dose lowering technique was utilized adhering to the principles of ALARA. COMPARISON STUDY: CTA chest of same day FINDINGS: There is a 1.1 cm subpleural nodular consolidative opacity of the basal left lower lobe on image 35 series 3. A few scattered tiny subpleural solid nodules are noted throughout the lung bases measuring 1 to 3 mm. No pneumatosis or pneumoperitoneum. Unremarkable spleen, pancreas, gallbladder a nd adrenal glands. Numerous metastatic lesions are scattered throughout the liver involving the right left hepatic lobes. The largest lesion is noted within the left hepatic lobe measuring 3.7 cm. Coars e calcifications are noted within the superior right hepatic lobe. There is patency of the hepatic an d portal veins. Unremarkable kidneys. No hydronephrosis. Contrast is noted within the urinary bladder from recent CTA of the chest. Prostate is upper limits of normal in size. Mild atherosclerosis of the aorta without aneurysm. Extensive acute appearing right-sided DVT is noted within the right common and external tanvi ac veins, common, superficial femoral and profunda femoris veins with surrounding inflammatory strand ing. The IVC is patent. No bowel obstruction or bowel wall thickening. Mild fecal retention. Normal appendix. Lytic metastati c disease is noted, particularly within the T9, T12 and L1 vertebral bodies. Acute appearing patholog ic fractures of the T9 and T12 superior and inferior endplates with mild vertebral body height loss a nd no retropulsion. Mild dextroscoliosis of the thoracolumbar junction. Additional lytic metastatic d isease of the bony pelvis includes the pubic bones, right superior pubic ramus, sacrum and right hong c bone. IMPRESSION: 1. Multifocal hepatic and osseous metastatic lesions, likely from the primary bronchogenic malignancy . 2. Acute appearing pathologic fractures of the T9 and T12 vertebral bodies with mild vertebral body h eight loss and no retropulsion. 3. Small scattered bibasilar pulmonary nodules measuring up to 3 mm should be evaluated on follow-up to exclude pulmonary metastasis. There is an additional 1.1 cm subpleural nodular consolidative opaci ty of the left lower lobe. 4. Acute right-sided iliofemoral DVT. 5. No bowel obstruction or bowel wall thickening. ACT 112: Negative or not required by law. The above report was generated using voice recognition software. It may contain grammatical, syntax o r spelling errors. Electronically signed by: Hosea Reese M.D. 03/15/2022 8:26 AM
--- NOTE | 2022-03-15 13:47 | Hospitalist Progress Note ---
Date of Service March 15, 2022 Assessment & Plan (1) DVT (deep venous thrombosis): Plan: EXTENSIVE DVTs of the RLE involving most of the deep veins and extending into the iliac vein. There is associated extensive PEs on CT chest imaging. He had had dyspnea for 4+ weeks thus he has had VTE for some time. Risk factor for this extensive VTE event - probable stage 4 lung ca with w/u in progress. Cont heparin drip, then hold starting 6 hours prior to tomorrow's liver bx. Ultimately would recommend lovenox 1mg/kg BID after any procedures are completed this admission. Down the line may be able to switch to a DOAC. (2) Pulmonary emboli: Plan: As seen on CTA chest. Extensive b/l. See #1 above. (3) Lung mass: Plan: CLAUDE spiculated mass highly concerning for lung cancer. Mets to the spine, liver noted on imaging. MRI brain w/ and w/o contrast ordered to exclude brain mets. Appreciate Dr Ahn's consultation. Liver bx under radiological guidance scheduled for tomorrow am. Dr Reyes with heme/onc has been formally consulted. Long bedside discussion held with pt & his today; all available information and plan of care discussed. (4) Bone metastases: Plan: As seen on imaging. Rapelje prn pain. Low threshold to liberalize the pain meds as needed for optimal pain relief. (5) Cellulitis of leg, right: Plan: The erythema of the RLE is most likely due to DVT and superficial phlebitis. I cannot 100% exclude an early cellulitis, however. Cont rocephin 2gm daily at least 1 more day, then can transition to PO abx. Plan: total time today 50 min, with >50% of which was spent counseling the pt & his at bedside Admission and Anticipated Discharge Date Admission Date: March 14, 2022 Subjective tele stable overnight his RLE pain, swelling and redness along w/ edema are all improved FREEMAN is unchanged - no worse than prior asks many appropriate questions regarding all of his imaging & test results arrived in the early afternoon - we had lengthy discussion of all results to date questions answered to the best of my ability Dr Ahn has seen - liver bx with radiology advised for tomorrow pt denies any new complaints Review of Systems Review of Systems: gen - no fevers cv - no chest pain pulm - no cough GI - no abd pain Physical Exam Physical Exam: gen - NAD, very pleasant mouth - MMM neck - no JVD heart - RRR, s1 s2, no murmur lungs - CTA b/l abd - soft, NT, ND, BS+, liver edge palpable ext - right thigh much larger than left thigh but less swelling/warmth/erythema of right thigh today; trace edema right ankle; no edema on left; pulses 2+ b/l skin - erythema and warmth RLE improved today Results & Data Results & Data ([facility]) Vital Signs (Past 12 Hours) Vital Signs Temp Pulse Pulse Resp BP Pulse Ox 03/15/22 11:45 37.3 C 90 20 130/89 96 03/15/22 08:00 97 H 03/15/22 07:51 36.9 C 94 H 18 126/83 99 03/15/22 03:43 37.2 C 86 16 134/83 97 Laboratory Results BMP wnl Diagnostic Findings Chest CTA 03/14/22 10:51 CT angio chest PE protocol CLINICAL HISTORY: Shortness of breath with exertion. COMPARISON STUDY: No previous studies for comparison. CT DOSE: 302.58 mGy.cm TECHNIQUE: CT Angio of the chest was performed.followed by image post processing with coronal, and sagittal MIP reformats. Contrast Volume: Optiray 320, 120 ml FINDINGS: Vasculature: Large intraluminal filling defects are present within the right and left main pulmonary arteries with extension into the lower lobe pulmonary arteries bilaterally. This also right upper lobe pulmonary emboli. Airway: The airway is clear. No endobronchial lesion is identified. Lungs: There is a large, solid, slightly spiculated left upper lobe mass measuring at least 3.6 x 3.3 cm. The findings are most characteristic of lung cancer. The remainder of the lungs are clear of acute alveolar opacities, air bronchograms or additional pulmonary nodules. Pleura: There is no evidence for pleural effusion. There is no evidence for pneumothorax. Mediastinum: There is no evidence for pathologic adenopathy. There is no evidence for right heart strain. The heart size is within normal limits. The thoracic aorta is within normal limits. There is no evidence for pericardial effusion. Upper abdomen:The adrenal glands were not fully included on this study. Osseous structures: There are multiple lytic lesions seen throughout the thoracic spine most characteristic of metastatic disease. Impression: 1. Positive CTA for pulmonary emboli within both main pulmonary arteries, both lower lobe pulmonary arteries and right upper lobe pulmonary artery. 2. No evidence for right heart strain. 3. 3.6 cm solid spiculated left upper lobe mass most characteristic of lung cancer. 4. Lytic lesions within the spine characteristic of metastatic bone disease. ACT 112: Negative or not required by law. Electronically signed by: Brandon Farfan M.D. 03/14/2022 1:38 PM Venous Doppler Study 03/14/22 10:51 US venous doppler LE RT CLINICAL HISTORY: Right lower extremity swelling, erythema and pain COMPARISON: None available at the time of this dictation. TECHNIQUE: Right lower extremity real-time compression venous ultrasound with Color Doppler imaging. Utilizing real-time ultrasonic imaging multiple real time high-resolution ultrasonic images with compression and noncompression maneuvers of the deep venous system in addition to color doppler imaging were performed from the common femoral vein through the proximal calf veins. FINDINGS: There is extensive thrombus present within the common femoral, superficial femoral, popliteal and posterior tibial veins. This also superficial thrombophlebitis seen within the greater saphenous vein. Impression: Extensive deep venous thrombosis throughout the right lower extremity. ACT 112: Negative or not required by law. Electronically signed by: Brandon Farfan M.D. 03/14/2022 2:08 PM Abdomen/Pelvis CT 03/14/22 15:[address] WITH IV CONTRAST CT DOSE: 277.26 mGy.cm HISTORY: Acute DVT with left upper lobe bronchogenic malignancy. likely stage 4 lung ca; eval distant mets TECHNIQUE: Multiaxial CT images of the abdomen and pelvis were performed following the IV administration of 93 cc of Optiray, A dose lowering technique was utilized adhering to the principles of ALARA. COMPARISON STUDY: CTA chest of same day FINDINGS: There is a 1.1 cm subpleural nodular consolidative opacity of the basal left lower lobe on image 35 series 3. A few scattered tiny subpleural solid nodules are noted throughout the lung bases measuring 1 to 3 mm. No pneumatosis or pneumoperitoneum. Unremarkable spleen, pancreas, gallbladder and adrenal glands. Numerous metastatic lesions are scattered throughout the liver involving the right left hepatic lobes. The largest lesion is noted within the left hepatic lobe measuring 3.7 cm. Coarse calcifications are noted within the superior right hepatic lobe. There is patency of the hepatic and portal veins. Unremarkable kidneys. No hydronephrosis. Contrast is noted within the urinary bladder from recent CTA of the chest. Prostate is upper limits of normal in size. Mild atherosclerosis of the aorta without aneurysm. Extensive acute appearing right-sided DVT is noted within the right common and external iliac veins, common, superficial femoral and profunda femoris veins with surrounding inflammatory stranding. The IVC is patent. No bowel obstruction or bowel wall thickening. Mild fecal retention. Normal jerome endix. Lytic metastatic disease is noted, particularly within the T9, T12 and L1 vertebral bodies. Acute appearing pathologic fractures of the T9 and T12 superior and inferior endplates with mild vertebral body height loss and no retropulsion. Mild dextroscoliosis of the thoracolumbar junction. Additional lytic metastatic disease of the bony pelvis includes the pubic bones, right superior pubic ramus, sacrum and right iliac bone. IMPRESSION: 1. Multifocal hepatic and osseous metastatic lesions, likely from the primary bronchogenic malignancy. 2. Acute appearing pathologic fractures of the T9 and T12 vertebral bodies with mild vertebral body height loss and no retropulsion. 3. Small scattered bibasilar pulmonary nodules measuring up to 3 mm should be evaluated on follow-up to exclude pulmonary metastasis. There is an additional 1.1 cm subpleural nodular consolidative opacity of the left lower lobe. 4. Acute right-sided iliofemoral DVT. 5. No bowel obstruction or bowel wall thickening. ACT 112: Negative or not required by law. The above report was generated using voice recognition software. It may contain grammatical, syntax or spelling errors. Electronically signed by: Hosea Reese M.D. 03/15/2022 8:26 AM PG Care Time/CCT Total # of Minutes Spent Total Time Spent with Patient: Total time spent is greater than 50% in coordination of care (as documented) at patient's floor/unit and/or counseling patient: Coding Level of Care Code 42047 Subseq Hosp Care Lvl 3 Diagnoses DVT (deep venous thrombosis) I82.409 Pulmonary emboli I26.99 Lung mass R91.8 Bone metastases C79.51 Cellulitis of leg, right L03.115
[2022-03-15] MEDS ORDERED: LORazepam 0.5 MG TAB PO STA ×2 (14:37→22:19)
[2022-03-15] MEDS ORDERED: LORazepam 2 MG/1 ML VIAL IV PRN (14:38)
[2022-03-15] MEDS: HEPARIN SODIUM/DEXTROSE 25,000 UNITS/500 ML BAG IV SCH (15:05)
[2022-03-15] MEDS: cefTRIAXone SODIUM 2,000 MG in DEXTROSE 5% 50 ML IV SCH (19:45)
--- NOTE | 2022-03-15 21:11 | Electrocardiogram Report ---
Test Reason : Blood Pressure : / mmHG Vent. Rate : 083 BPM Atrial Rate : 083 BPM P-R Int : 138 ms QRS Dur : 098 ms QT Int : 364 ms P-R-T Axes : 059 054 029 degrees QTc Int : 427 ms Normal sinus rhythm Normal ECG No previous ECGs available Confirmed by Hubert Paz ([id number]) on 03/15/2022 9:11:23 PM Referred By: REFERRED SELF Confirmed By:Hubert Paz
[2022-03-15] MEDS ORDERED: GADOBUTROL 65ML VIAL IV ONE (23:21)
[2022-03-16] MEDS ORDERED: [UNRECOGNIZED DRUG - REMARK] ONE (03:00)
[2022-03-16 06:03] LABS: Hematocrit (blood only) 35.7 % (42-52); Hemoglobin 11.8 g/dL (14.0-18.0); Mean Corpuscular Hemoglobin 26.1 pg (25-34); Mean Corpuscular Hgb Conc 33.1 g/dL (32-36); Mean Platelet Volume 9.7 fL (7.4-10.4); Platelet Count 273 K/uL (130-400); RDW Coefficient of Variation 14.5 % (11.5-14.5); RDW Standard Deviation 41.3 fL (36.4-46.3); Red Blood Count 4.52 M/uL (4.7-6.1); White Blood Count 11.86 K/uL (4.8-10.8)
[2022-03-16 06:21] LABS: BUN Creatinine Ratio 11.3 (10-20); Creatinine Clr Calc Pharmacy 111.1 ml/min; Est GFR (African American) 125.9 ml/min; Est GFR (Non-African American) 108.6 ml/min; Potassium 3.9 mmol/L (3.5-5.1)
[2022-03-16 06:33] LABS: Partial Thromboplastin Ratio 1.1
--- NOTE | 2022-03-16 09:23 | Magnetic Resonance Report ---
MR brain wo/w con CLINICAL HISTORY: stage 4 cancer; eval for brain mets. COMPARISON STUDY: No previous studies for comparison. TECHNIQUE: Multiplanar multisequence images of the brain were performed before and after Gadavist, 7 mL of IV contrast. Diffusion weighted imaging and ADC mapping was also performed. FINDINGS: Extra-axial space: There is no evidence for a subdural hematoma, There are no extra-axial fluid eric ections. Ventricles and cisterns: The ventricles are normal in size and configuration. There is no evidence f or midline shift or mass effect. Parenchyma: On noncontrast images, there is no evidence for an acute hemorrhage or infarct. No acute diffusion abnormalities are noted on diffusion weighted imaging or ADC mapping. However, there is localized cerebral edema seen within the right temporal lobe. The sulci and gyri ap pear normal without effacement. The midline structures are unremarkable. The posterior fossa structur es appear normal. On postcontrast imaging, there is a ring-enhancing mass present at the site of cerebral edema within the right temporal lobe. It measures 14 x 12 x 10 mm and AP, transverse and craniocaudad dimensions r espectively. This represents the presence of metastatic disease. A smaller, more subtle ring-enhancin g lesion is seen at the junction of the right posterior parietal and occipital lobes. This lesion sadia sures approximately 5 to 6 mm in greatest size. Osseous structures: The paranasal sinuses are well aerated. The mastoid air cells are well aerated. Soft tissues: No focal soft tissue abnormalities are identified. IMPRESSION: 1. There are 2 ring-enhancing lesions present on the right as described above. The findings represent the presence of prostatic disease. This report will be called/faxed to the referring clinician. ACT 112: Negative or not required by law. Electronically signed by: Brandon Farfan M.D. 03/16/2022 9:22 AM
--- NOTE | 2022-03-16 10:28 | Ultrasound Report ---
ULTRASOUND-GUIDED FINE-NEEDLE ASPIRATION LIVER CLINICAL HISTORY: Lung mass. Hepatic metastatic disease. COMPARISON STUDY: Abdominal CT dated 03/14/2022.. PROCEDURE: The risks, benefits, and alternatives to the procedure were discussed with the patient. Wr itten informed consent was obtained. The patient was placed supine in ultrasound, and a hypoechoic le ramiro in the left lobe of the liver was localized by ultrasound and selected for fine needle aspiratio n. The ventral upper abdomen was shaved, and then prepped/draped in the usual sterile fashion. 1% lid ocaine was used for local anesthetic. The lesion was aspirated under ultrasound guidance with 5 passe s utilizing 25-gauge needles. 3 specimens were reviewed by the pathologist in real-time and deemed ad equate for diagnosis. 2 additional passes were submitted for cell block. The patient tolerated the pr ocedure well and left the department in satisfactory condition. IMPRESSION: Completed fine-needle aspiration of a left lobe liver lesion as above. ACT 112: Negative or not required by law. Electronically signed by: Vincent Christensen M.D. 03/16/2022 10:27 AM
[2022-03-16] MEDS ORDERED: PANTOprazole 40 MG TAB PO STA (10:38)
[2022-03-16] MEDS: dexAMETHasone 1 MG TAB PO SCH (11:57)
[2022-03-16] MEDS: HEPARIN SODIUM/DEXTROSE 25,000 UNITS/500 ML BAG IV SCH (12:39)
--- NOTE | 2022-03-16 17:42 | Consultation Report ---
DATE OF SERVICE: 03/16/2022. REASON FOR CONSULTATION: Probable stage IV lung cancer. HISTORY OF PRESENT ILLNESS: The patient is a pleasant 51-year-old gentleman who presented to the ED on 03/14/2022 with complaints of worsening dyspnea on exertion, right lower extremity swelling and lower back pain. On presentation to the ED, he had CTA chest performed to evaluate for PE due to complaint of shortness of breath, which was positive for bilateral PEs with no evidence of right heart strain. Also, incidentally noted on CTA chest was 6.3 cm solid spiculated left upper lobe mass with associated lytic lesions within the spine characteristic of metastatic bone disease. Bilateral lower extremity ultrasound revealed extensive DVT throughout the right lower extremity. CT abdomen and pelvis also performed on 03/14/2022 revealed multifocal hepatic and osseous metastatic lesions, likely from primary bronchogenic malignancy, acute appearing pathologic fractures of T9 and T12 vertebral bodies with mid vertebral body height loss with no retropulsion, small scattered bilateral bibasilar pulmonary nodules measuring up to 3 mm, additional 1.1 cm subpleural nodular consolidative opacity of the left lower lobe and acute right-sided iliofemoral DVT. He underwent brain MRI on 03/15/2022 for which final report was pending at time of this dictation. During my evaluation of the patient, he denies any significant smoking history. Also, denies any occupational exposures. 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 HOME MEDICATIONS: No known home medications. ALLERGIES: No known drug allergies. PAST MEDICAL HISTORY: Nonsignificant. PAST SURGICAL HISTORY: Nonsignificant. FAMILY HISTORY: Noncontributory. SOCIAL HISTORY: Drinks alcohol occasionally. Denies any illicit drug use. REVIEW OF SYSTEMS: CONSTITUTIONAL: Positive for weight loss. Denies fever, chills or night sweats. EYES: Negative for change in vision. ENT: Unremarkable. CARDIOVASCULAR: He denies chest pain, palpitations, dizziness, or diaphoresis. RESPIRATORY: Endorses shortness of breath. Denies cough or hemoptysis. GASTROINTESTINAL: Negative for diarrhea, constipation, melena, nausea, or vomiting. GENITOURINARY: Negative for urinary frequency, hematuria or dysuria. NEUROLOGIC: Denies headaches or dizziness. LYMPHATICS/HEMATOLOGIC: Denies new adenopathy, petechia or bleeding. MUSCULOSKELETAL: Positive for back pain. PHYSICAL EXAMINATION: VITAL SIGNS: Blood pressure 118/76, heart rate 94, respiratory rate 16, temperature 36.7, oxygen saturation 99% on room air. CONSTITUTIONAL: Vitals are stable. EYES: Negative for conjunctivae, erythema or icterus. ENT: Negative for masses. NECK: Negative for masses or palpable thyromegaly. RESPIRATORY: Lung sounds were generally clear bilaterally. CARDIOVASCULAR: Heart shows a regular rate and rhythm without significant murmur, gallops or rubs. GASTROINTESTINAL: Abdomen was soft with normal bowel sounds. No palpable hepatosplenomegaly. LYMPHATIC SYSTEM: There was no palpable peripheral lymphadenopathy. EXTREMITIES: Positive for right lower extremity edema. IMAGING STUDIES: CTA chest on 03/14/2022 IMPRESSION: 1. Positive CTA for pulmonary emboli within both main pulmonary arteries, both lower lobe pulmonary arteries and right lower lobe pulmonary artery. 2. No evidence of right heart strain. 3. A 3.6 cm solid spiculated left upper lobe mass most characteristic of lung cancer. 4. Lytic lesions within the spine characteristic of metastatic bone disease. Venous Doppler on 03/14/2022 IMPRESSION: Extensive DVT throughout the right lower extremity. CT abdomen and pelvis on 03/14/2022. IMPRESSION: 1. Multifocal hepatic and osseous metastatic lesions, likely from primary bronchogenic malignancy. 2. Acute appearing pathologic fractures of T9 and T12 vertebral bodies with mild vertebral body height loss and no retropulsion. 3. Small scattered bibasilar pulmonary nodules measuring up to 3 mm should be evaluated on followup to include pulmonary metastasis. There is an additional 1.1 subpleural nodular consolidative opacity of the left lower lobe. 4. Acute right-sided iliofemoral DVT. 5. No bowel obstruction or bowel wall thickening. ASSESSMENT: 1. Probable metastatic lung cancer. 2. Liver metastasis. 3. Bone metastasis. 4. Bilateral pulmonary embolisms and right lower extremity deep venous thrombosis. Very pleasant gentleman who most likely has metastatic lung cancer. Agree with plan for liver biopsy to confirm metastatic disease as well as identify primary. Also, agree with treating bilateral PE/DVT with unfractionated heparin or therapeutic low molecular weight heparin while inpatient. May consider switching him to a DOAC if he is asymptomatic upon discharge from hospital. Given his nonsmoking history, this raises a suspicion that he may have actionable mutation such as EGFR/ALK/ROS/RET mutations. As such, he would benefit from molecular testing which can be obtained from tumor sample. We will also obtain liquid biopsy via [facility] to assess for actionable mutations. These results may come back earlier than gene mutational studies. PLAN: 1. Agree with therapeutic unfractionated heparin or low molecular weight heparin while admitted in the hospital. Therapeutic LMWH can be continued after discharge if still sypmtomatic. May transition to a DOAC if he is asymptomatic from the pulmonary standpoint upon discharge from hospital. 2. Agree with plan for biopsy to confirm metastatic disease as well as identify primary, which would determine treatment decisions. 3. We will obtain [id number] molecular testing on peripheral blood. 4. Will follow up on brain MRI results. 5. If biopsy confirms metastatic lung cancer, treatment options would include targeted oral pills if he has actionable molecular marker or combination chemoimmunotherapy with ambler based chemotherapy in addition to Keytruda. Thank you for this consult. Oncology will continue following the patient while in the hospital. Please feel free to call if you have any further questions. Job ID: [id number] DERIAN
[2022-03-16] MEDS: cefTRIAXone SODIUM 2,000 MG in DEXTROSE 5% 50 ML IV SCH (19:44)
--- NOTE | 2022-03-16 21:15 | Hospitalist Progress Note ---
Date of Service March 16, 2022 Assessment & Plan (1) Brain metastases: Plan: x 2 on brain MRI. minimal edema around the R temporal met. start dexamethasone 2mg daily to reduce and keep swelling at minimum. no symptoms from the mets. no headaches or cognitive issues. (2) Liver metastases: Plan: numerous. s/p biopsy today by radiology; appreciate their assistance. hold heparin 24 hours post-biopsy. resume heparin drip tomorrow am at ~0900 without a bolus. I don't see any evidence of post-biopsy bleeding. Light activities today; resume normal activities tomorrow. (3) DVT (deep venous thrombosis): Plan: EXTENSIVE DVTs of the RLE involving most of the deep veins and extending into the iliac vein. There is associated extensive PEs on CT chest imaging. He had had dyspnea for 4+ weeks thus he has had VTE for some time. Risk factor for this extensive VTE event - probable stage 4 lung ca. Holding heparin drip, resume at ~24 hours post liver biopsy. Ultimately would recommend lovenox 1mg/kg BID at discharge. Will need teaching. Down the line may be able to switch to a DOAC. (4) Pulmonary emboli: Plan: As seen on CTA chest. Extensive b/l. See #1 above. (5) Lung mass: Plan: CLAUDE spiculated mass highly concerning for lung cancer. Mets to the spine, liver, and brain noted on imaging. Appreciate Dr Ahn's consultation. Appreciate Dr Reyes's consultation. I also spoke with Dr Song, rad onc, who will consult. Liver bx under radiological guidance completed this am. (6) Bone metastases: Plan: As seen on imaging. [place] prn pain. Low threshold to liberalize the pain meds as needed for optimal pain relief. Role for radiation discussed with patient today if pain is not controlled. (7) Cellulitis of leg, right: Plan: The erythema of the RLE is most likely due to DVT and superficial phlebitis. I cannot 100% exclude an early cellulitis, however. Either way erythema mainly resolved. Cont rocephin 2gm today, then transition to PO keflex. Complete 7 days of IV/PO abx. Plan: total care time activities today 45 min Admission and Anticipated Discharge Date Admission Date: March 14, 2022 Subjective during my visit pt's was at bedside numerous questions from pt and his about his overall care plan, the cancer, the brain mets, anticoagulation, etc he denies any new complaints today no dyspnea or FREEMAN minimal pain from liver bx site no bruising noted pain, swelling, redness of right thigh DVTs all improved tele overnight wnl Review of Systems Review of Systems: gen - no fevers cv - no chest pain, no orthopnea pulm - no cough or dyspnea GI - no abd pain or N/V Physical Exam Physical Exam: gen - NAD, very pleasant; tearful at times mouth - MMM neck - no JVD heart - RRR, s1 s2, no murmur lungs - CTA b/l abd - soft, NT, ND, BS+, liver edge palpable; band-aid over anterior upper right abdomen from biopsy; no ecchymoses; negative Patel-Boston's sign right flank ext - right thigh swelling improved; erythema/warmth of right thigh improved/nearly resolved; erythema of distal right leg resolved skin - erythema and warmth RLE resolved psych - awake, alert, oriented x 3; tearful Results & Data Results & [facility] ([facility]) Vital Signs (Past 12 Hours) Vital Signs Temp Pulse Pulse Resp BP Pulse Ox 03/16/22 19:27 36.5 C 95 H 23 145/89 H 96 03/16/22 15:31 36.9 C 90 17 144/91 H 98 03/16/22 14:19 91 H 03/16/22 11:01 36.7 C 80 17 151/89 H 95 Laboratory Results Laboratory Results - last 24 hr 03/16/22 03/16/22 03/16/22 05:18 05:18 05:18 WBC 11.86 H RBC 4.52 L Hgb 11.8 L Hct 35.7 L MCV 79.0 L MCH 26.1 MCHC 33.1 RDW Std Deviation 41.3 RDW Coeff of Marizol 14.5 Plt Count 273 MPV 9.7 APTT 31.0 PTT Ratio 1.1 Sodium 137 Potassium 3.9 Chloride 103 Carbon Dioxide 27 Anion Gap 7 BUN 8 Creatinine 0.71 Est Cr Clr Drug Dosing 111.1 Est GFR ( Amer) 125.9 Est GFR (Non-Af Amer) 108.6 BUN/Creatinine Ratio 11.3 Glucose 87 Calcium 9.0 PG Care Time/CCT Total # of Minutes Spent Total Time Spent with Patient: Total time spent is greater than 50% in coordination of care (as documented) at patient's floor/unit and/or counseling patient: Coding Level of Care Code 71127 Subseq Hosp Care Lvl 3 Diagnoses DVT (deep venous thrombosis) I82.409 Pulmonary emboli I26.99 Lung mass R91.8 Bone metastases C79.51 Cellulitis of leg, right L03.115 Brain metastases C79.31 Liver metastases C78.7
[2022-03-17 07:55] LABS: Hematocrit (blood only) 35.4 % (42-52); Hemoglobin 11.8 g/dL (14.0-18.0); Mean Corpuscular Hemoglobin 26.3 pg (25-34); Mean Corpuscular Hgb Conc 33.3 g/dL (32-36); Mean Corpuscular Volume 78.8 fL (80-100); Mean Platelet Volume 9.9 fL (7.4-10.4); Platelet Count 197 K/uL (130-400); RDW Coefficient of Variation 14.3 % (11.5-14.5); RDW Standard Deviation 40.8 fL (36.4-46.3); Red Blood Count 4.49 M/uL (4.7-6.1); White Blood Count 13.76 K/uL (4.8-10.8)
[2022-03-17 08:03] LABS: Calcium 9.3 mg/dl (8.5-10.1); Creatinine Clr Calc Pharmacy 97.4 ml/min; Est GFR (African American) 119.3 ml/min; Est GFR (Non-African American) 102.9 ml/min; Potassium 4.1 mmol/L (3.5-5.1)
--- NOTE | 2022-03-17 08:05 | Pulmonology Progress Note ---
Date of Service March 17, 2022 Assessment & Plan (1) Lung mass: (2) Pulmonary emboli: (3) DVT (deep venous thrombosis): Plan: Impression: 51-year-old male without prior medical history who is a non-smoker presenting now with acute DVT and PE with lung mass, bone lesions, and hepatic lesions as well as brain lesions concerning for widespread malignancy. Recommendations: 1. Patient is status post percutaneous liver biopsy with pathology pending. This will provide diagnostic and staging information when finalized. He has been seen by medical oncology and radiation oncology is pending given the spine fractures and MARINE RIGGER lesions, palliative radiation may be appropriate. 2. Acute PE DVT: Per hematology oncology: Agree with transition to DOAC. Lifelong anticoagulation. No indication for repeating the patient's duplex ultrasounds of the lower extremity or CT angiogram in the absence of symptoms of clinical progression. 3. Patient will require outpatient PET scanning. This point time the patient's diagnosis appears secured and he is plugged in with appropriate medical specialties. His PE has been adequately treated. From a pulmonary standpoint he can be dismissed from the hospital. Pulmonary will sign off. Feel free to contact us if we can be of additional assistance. I would be happy to see this patient in the outpatient setting if needed Thanks for the opportunity participating in the care of this patient. Feel free to contact us with questions or concerns Admission and Anticipated Discharge Date Admission Date: March 14, 2022 Subjective Patient seen and examined. EMR reviewed. 24-hour events noted. The patient is doing well clinically. He is off oxygen. He is been transitioned off heparin to Lovenox injections. He was seen by medical oncology. Radiation oncology consultation is pending. MRI of the brain unfortunately demonstrated metastatic foci. He is undergone percutaneous liver biopsy. Patient reports that his swelling of the lower extremities is better. He denies any chest pain or palpitations. No syncope or presyncope. No bleeding complications. He and his family are appropriately distraught at his diagnosis but seem focused on pursuing a treatment plan. Review of Systems Review of Systems: All systems reviewed & are unremarkable except as noted in Subjective Physical Exam Physical Exam: gen - NAD, pleasant eyes - PERRL HENT - nose clear, mouth with MMM neck - supple, no lymphadenopathy, no masses CV - RRR, s1 s2, no murmur lungs - CTA b/l, no increased work of breathing abd - soft, NT, ND, BS+, no HSM ext - extensive edema of right thigh (and mild edema right st/ankle); warm to palpation right thigh with erythema; left leg grossly normal in appearance; pulses 2+ b/l skin - erythema of medial right thigh extending to anterior thigh; mild erythema tibial plateau region; warm to touch neuro - strength 5/5 x 4 exts, DTRs 2+ b/l psych - a/o x 3 lymph - no cervical lymph nodes b/l Results & Data Results & Data ([facility]) Vital Signs (Past 12 Hours) Vital Signs Temp Pulse Pulse Resp BP BP Pulse Ox 03/17/22 07:29 36.6 C 75 18 132/85 99 03/17/22 06:12 86 03/17/22 03:22 36.8 C 84 16 127/88 97 03/16/22 23:20 98 H 03/16/22 23:07 36.7 C 92 H 18 149/83 H 97 Laboratory Results 03/17/22 07:10 Diagnostic Findings No new imaging PG Care Time/CCT Total # of Minutes Spent Total Time Spent with Patient: Total time spent is greater than 50% in coordination of care (as documented) at patient's floor/unit and/or counseling patient: Coding Level of Care Code 97768 Subseq Hosp Care Lvl 3 Diagnoses Lung mass R91.8 Pulmonary emboli I26.99 DVT (deep venous thrombosis) I82.409
--- NOTE | 2022-03-17 08:59 | Radiation OncologyConsultation ---
Date of Consultation March 16, 2022 Assessment & Plan (1) Brain metastases: Assessment: 51-year-old male who presented with bilateral pulmonary emboli and an lower extremity emboli was found to have a lung mass and diffuse metastatic disease. There were 2 brain lesions. Treatment Options: 1. Stereotactic treatment to the 2 lesions. 2. Observation Recommendations: Stereotactic treatment to the 2 brain lesions. Plan: 1. CT simulation with IV contrast. 2. Treatment planning and approval of 3 fractions of SBRT to treat every other day. 3. Initiation of systemic therapy as recommended by Dr. Reyes. Rationale/Explanation of Treatment: This unfortunate gentleman has 2 brain lesions which are asymptomatic. He has evidence of widespread disease including bone and liver metastasis. We are awaiting verification of tumor origin and histology. The patient's main treatment will be systemic therapy however additional time will be required to obtain the appropriate information and in that interim we will treat him with a course of SBRT consisting of 3 fractions to the 2 brain lesions. I reviewed the risks and benefits and we did discuss treatment recommendations for the management of metastatic disease to the brain. I did explain to the patient that most often biopsies are not performed given the patient's previous history of cancer unless the patient plans to undergo surgical resection. I discussed treatment options including surgical resection and radiation therapy. The patient defer surgical intervention and would prefer to undergo radiation therapy. I then discussed the advantages and disadvantages of both whole brain radiation therapy and stereotactic radiosurgery. I did discuss the benefits of whole brain radiation therapy with respect to overall intracranial control and the most significant disadvantages including long-term neurocognitive side effects; we then focused or conversation and stereotactic radiosurgery and explained the benefits which included minimizing radiation therapy to the normal brain and potentially reducing long- term side effects from radiation therapy as well as the disadvantages including the inability to potentially prevent further lesions from developing in the brain. I did explain that after the completion of stereotactic radiosurgery we would follow the patient with an MRI of the brain every 2-3 months which would enable us to potentially diagnose new lesions early while they are still asymptomatic and potentially treatable with stereotactic radiosurgery. The patient would like to undergo stereotactic radiosurgery. The patient will be undergo CT simulation for treatment planning. He will likely start his treatment as an outpatient following anticipated discharge tomorrow. I explained the indications, alternatives, benefits, risks and side effects of external beam radiation therapy to the brain. I explain the most common side effects including but not limited to skin erythema, skin break down, hair loss, radiation necrosis, fatigue, short-term memory loss, decreased neurocognitive performance, cerebral edema, hearing loss, damage to cochlea structures, seizures, loss of sensory and or motor function. I explained the treatment planning process and what to expect before during and after treatment. The patient understands and would be willing to consent to treatment. (2) Bone metastases: Assessment: 51-year-old male who recently presented with shortness of breath and lower extremity edema and was found to have diffuse metastatic disease along with PE. Biopsy of the liver lesion has been taken and results pending. He has diffuse bony metastatic disease with fractures of T9 and T12. He presented to the hospital with back pain. This is improved with rest and medication. Treatment Options: 1. Palliative radiation to the area that was causing him back pain. 2. Delay initiation of palliative spine and radiation if necessary to avoid delaying the initiation of systemic therapy. Recommendations: I recommend that we start with stereotactic treatment to the 2 brain lesions. We will then evaluate his back pain as an outpatient and discussed with Dr. Reyes the status of molecular studies as necessary and anticipated timing of initiation of systemic therapy. Plan: 1. If patient develops recurring back pain following discharge and there is appropriate delay in initiation of systemic therapy we will proceed with a course of palliative radiation to the lower T-spine. 2. If the patient is ready to start systemic therapy and is having no back pain we will hold off on initiation of palliative treatment to the spine at this time. 3. If the patient is not ready to start systemic therapy I would recommend palliative radiation due to the fracture of T9 and T12. 4. Initiation of systemic chemotherapy as recommended by Dr. Reyes as soon as she is ready to start. Rationale/Explanation of Treatment: The patient has diffuse bony metastatic disease as well as liver and brain mets. He needs to start systemic therapy as soon as possible. However he did present with back pain but upon admission and appropriate pain medication this has improved. His scans show pathologic fractures of T9 and T12 with some epidural impingement. If the patient has pain upon discharge I would recommend a short course of palliative radiation to the lower T-spine. If he is not ready to start systemic therapy I would recommend a more conventional palliative course of treatment to the lower T-spine even if he is not having pain. If however he is ready to start systemic therapy and is having no pain I would recommend holding off on initiation of palliative radiation to the lower T-spine and proceed with systemic therapy. The patient had multiple questions which were answered to his full satisfaction. Thank you for allowing us to participate in the care of this patient. This chart was completed in part utilizing [employer] Voice Recognition software. Grammatical errors, random word insertions, pronoun errors and incomplete sentences are occasional consequence of this system due to software limitations, ambient noise and hardware issues. Any formal questions or concerns about the content, text or information contained within the body of this dictation should be directly addressed to the provider for clarification. Rios Song MD Department of Radiation Oncology [facility] and [facility] History of Present Illness Reason for Consultation: Brain and bone mets. Attending Physician: Guanakito Teixeira History of Present Illness Mr. Ibanez is a 51-year-old male who presented to the emergency department on 03/14/2022 with a complaint of worsening dyspnea, right lower extremity swelling and complaint of lower back pain. 03/08/2022. Hip images taken showing no acute fracture or dislocation. 03/14/2022. Chest CTA performed. This showed large intraluminal filling defects within the right and left main pulmonary artery with extension into the lower lobe of the pulmonary arteries bilaterally with right upper lobe pulmonary emboli. There was no pathologic mediastinal adenopathy there was multiple lytic lesions seen throughout the thoracic spine consistent with metastatic disease. This was positive for pulmonary emboli. Venous Doppler studies showed extensive thrombus present within the common femoral, superficial femoral, popliteal and posterior tibial veins. There is superficial thrombophlebitis seen within the greater saphenous vein. 03/14/2022. CT of the abdomen and pelvis showed multiple hepatic and bony metas tatic disease consistent with a lung primary. There is acute pathologic fracture of T9 and T12 with mild vertebral body loss of height. There are small scattered bibasilar pulmonary nodules measuring up to 3 mm. There is an acute right sided iliofemoral DVT. 03/15/2022. MRI of the brain showed 2 ring-enhancing lesions 1 measuring 1.4 x 1.2 x 1.0 cm in the right temporal lobe and a smaller ring-enhancing lesion in the right posterior parietal and occipital lobe measuring 5 to 6 mm. 03/16/2022. Ultrasound-guided fine-needle aspiration of the liver was performed to rule out hepatic metastatic disease. These results are pending. 03/16/2022. Patient seen in referral by Dr. Reyes. She is awaiting final pathology, 03/17/2022. Patient seen by radiation oncology for evaluation and discussion of the role of palliative radiation in the presence of diffuse metastatic disease from probable lung primary. This chart was completed in part utilizing [employer] Voice Recognition software. Grammatical errors, random word insertions, pronoun errors and incomplete sentences are occasional consequence of this system due to software limitations, ambient noise and hardware issues. Any formal questions or concerns about the content, text or information contained within the body of this dictation should be directly addressed to the provider for clarification. Rios Song MD Department of Radiation Oncology [facility] Allergies Allergy/AdvReac Type Severity Reaction Status Date / Time No Known Allergies Allergy Unverified 03/14/22 11:56 Home Medications Medication Instructions Recorded Confirmed Type dexamethasone 4 mg tablet 4 mg PO .COMPLEX 3 Days #3 tab 03/17/22 Rx enoxaparin 80 mg/0.8 mL 70 mg SUBCUT Q12H #60 ml 03/17/22 Rx subcutaneous syringe (Lovenox) Patient History Medical History (Updated 03/17/22 @ 06:40 by Guanakito Teixeira) No pertinent past medical history Surgical History (Updated 03/14/22 @ 15:42 by Guanakito Teixeira) No pertinent past surgical history Family History (Updated 03/14/22 @ 15:43 by Guanakito Teixeira) Father , age 82 COPD (chronic obstructive pulmonary disease) Mother , age 82 Myocardial infarction Social History (Updated 03/17/22 @ 09:16 by Shannan Wharton PA-C) Smoking Status: Never smoker Second Hand Exposure: Yes (Father smoked 3 packs/day.); Hx Alcohol Use: Yes Alcohol type: beer and wine Alcohol Intake Frequency: Monthly or Less Hx Substance Use: No Preferred Language: Puerto Rican Communication Ability: Effective Print 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 Cardiovascular: no chest pain and no dyspnea at rest Gastrointestinal: no nausea and no problem reported Genitourinary: no problem reported Musculoskeletal: as per Subjective / HPI Integumentary: no problem reported Neurologic: no numbness, no lack of coordination, no dizziness, no headache(s), no abnormal speech and no confusion Psychiatric: no problem reported Endocrine: no problem reported Physical Exam Constitutional: WD/WN, vitals as above Eyes: PERRL, conjunctivae normal, anicteric sclerae ENMT: Ears: no hearing impairment Neck: trachea midline, no thyromegaly Respiratory: normal respiratory effort, lungs clear to auscultation Cardiovascular: RRR, no murmur, no edema Gastrointestinal (Abdomen): normal bowel sounds, soft, nontender, no hepatosplenomegaly Skin: no rashes, warm and dry Neurologic: PERRL, EOMI, accommodation nl, no face palsy, no dysarthria Speech / Cognition: no expressive aphasia Motor/Sensory: no tremor and normal movement Gait: no ataxic gait Coordination: normal Romberg test Normal strength and coordination of upper and lower extremities. Psychiatric: A+Ox3, euthymic affect Results (Rad Onc) Pathology Results: pending Imaging Studies: were reviewed and pertinent findings noted in HPI Time Spent Attending This documentation has been prepared in full or in part by Shannan MOSES acting as a scribe under my direction. I, Dr. Song personally reviewed the services described and have reviewed the documentation to ensure its accuracy. I spent 20 minutes minutes with direct face to face interaction with the patient which included obtaining clinical information, recommending a plan of action and answering questions. I spent 30 minutes reviewing his scans and chart and preparation of this document. AMY
[2022-03-17] MEDS ORDERED: HEPARIN SODIUM/DEXTROSE 25,000 UNITS/500 ML BAG IV SCH (09:00)
[2022-03-17] MEDS ORDERED: Heparin IV Adult Wt-Based Standard *NO* Bolus Protocol IV SCH (09:00)
[2022-03-17] MEDS: dexAMETHasone 1 MG TAB PO SCH (09:14)
[2022-03-17] MEDS: PANTOprazole 40 MG TAB PO SCH (09:14)
[2022-03-17] MEDS: cephALEXin 500 MG CAP PO SCH ×2 (12:59→19:48)
[2022-03-17 15:48] LABS: Partial Thromboplastin Ratio 1.9
[2022-03-17 16:09] LABS: Partial Thromboplastin Time 53.2 Seconds (21.0-31.0)
--- NOTE | 2022-03-17 20:49 | Hospitalist Progress Note ---
Date of Service March 17, 2022 Assessment & Plan (1) Brain metastases: Plan: x 2 on brain MRI. minimal edema around the R temporal met. started dexamethasone 2mg daily to reduce and keep swelling at minimum. no symptoms from the mets. no headaches or cognitive issues. (2) Liver metastases: Plan: numerous. s/p biopsy yesterday by radiology. bx - c/w metastatic adenocarcinoma of the lung. heparin drip resumed this am (about 24-hours post-liver bx). then convert to lovenox SC tomorrow am. (3) DVT (deep venous thrombosis): Plan: EXTENSIVE DVTs of the RLE involving most of the deep veins and extending into the iliac vein. There is associated extensive PEs on CT chest imaging. He had had dyspnea for 4+ weeks thus he has had VTE for some time. Risk factor for this extensive VTE event - stage 4 lung ca. Resume heparin drip this am. Then transition to lovenox 1mg/kg BID tomorrow am. Down the line may be able to switch to a DOAC. (4) Pulmonary emboli: Plan: As seen on CTA chest. Extensive b/l. See #1 above. (5) Lung mass: Plan: s/p liver bx -- c/w Adenocarcinoma of the lung. Mets to the spine, liver, and brain noted on imaging. Appreciate Dr Ahn's consultation. Appreciate Dr Reyes's consultation. Appreciate Dr Song's consultation. Radiation to the brain mets planned for next week. (6) Bone metastases: Plan: As seen on imaging. [place] prn pain. Radiation as outpatient if needed (to t-spine, etc). (7) Cellulitis of leg, right: Plan: The erythema of the RLE is most likely due to DVT and superficial phlebitis. I cannot 100% exclude an early cellulitis, however. Either way erythema mainly resolved. s/p 3 days of rocephin. then plan 4 days of keflex. day #1 of such. (8) Microcytic anemia: Plan: check Fe studies in am if normal likely has thalaseemia Plan: d/c home tomorrow of note - patient does NOT have outpatient medication insurance coverage thus, will ask [facility] to provide 7 day supply of the lovenox a patient assistance program application for lovenox was completed today by case management appreciate their help total time today 35 minutes, >50% of which was spent counseling the pt and his at bedside Admission and Anticipated Discharge Date Admission Date: March 14, 2022 Subjective pt reports NO dyspnea at rest or with exertion RLE edema/pain/redness improved; mild R right thigh pain no chest pain no pain over liver bx site he has NOT noted any ecchymoses of the abdominal wall, flank or back at bedside lengthy conversation about biopsy results, lovenox transition, insurance issues, radiation treatment, chemo, discharge planning, etc questions answered Review of Systems Review of Systems: gen - no fever psych - anxious, but sleeping ok at night GI - no abd pain, nausea, emesis pulm - no cough or dyspnea CV - no pleuritic pain Physical Exam Physical Exam: gen - NAD, very pleasant mouth - MMM neck - no JVD heart - RRR, s1 s2, no murmur lungs - CTA b/l abd - soft, NT, ND, BS+, band-aid over anterior upper right abdomen from recent liver biopsy; no ecchymoses; negative Patel-Boston's sign right flank ext - right thigh swelling improved; erythema/warmth of right thigh resolved; erythema of distal right leg resolved vascular - pulses b/l feet 2+ skin - erythema and warmth RLE resolved psych - awake, alert, oriented x 3; tearful at times Results & Data Results & Data ([facility]) Vital Signs (Past 12 Hours) Vital Signs Temp Pulse Pulse Resp BP Pulse Ox 03/17/22 20:00 36.8 C 93 H 16 146/96 H 99 03/17/22 15:20 36.7 C 90 24 152/97 H 97 03/17/22 14:18 90 Laboratory Results Laboratory Results - last 24 hr 03/17/22 03/17/22 03/17/22 07:10 07:10 15:13 WBC 13.76 H RBC 4.49 L Hgb 11.8 L Hct 35.4 L MCV 78.8 L MCH 26.3 MCHC 33.3 RDW Std Deviation 40.8 RDW Coeff of Marizol 14.3 Plt Count 197 MPV 9.9 APTT 53.2 H* PTT Ratio 1.9 Sodium 136 Potassium 4.1 Chloride 101 Carbon Dioxide 27 Anion Gap 8 BUN 17 Creatinine 0.81 Est Cr Clr Drug Dosing 97.4 Est GFR ( Amer) 119.3 Est GFR (Non-Af Amer) 102.9 BUN/Creatinine Ratio 21.0 H Glucose 91 Calcium 9.3 PG Care Time/CCT Total # of Minutes Spent Total Time Spent with Patient: Total time spent is greater than 50% in coordination of care (as documented) at patient's floor/unit and/or counseling patient: Coding Level of Care Code 62728 Subseq Hosp Care Lvl 3 Diagnoses Brain metastases C79.31 Liver metastases C78.7 DVT (deep venous thrombosis) I82.409 Pulmonary emboli I26.99 Lung mass R91.8 Bone metastases C79.51 Cellulitis of leg, right L03.115 Microcytic anemia D50.9
[2022-03-18] MEDS ORDERED: STOP ORDER [HEPARIN DRIP] ONE (06:00)
[2022-03-18 06:28] LABS: Red Blood Count 4.29 M/uL (4.7-6.1); White Blood Count 16.34 K/uL (4.8-10.8)
[2022-03-18 06:29] LABS: Hematocrit (blood only) 34.2 % (42-52); Hemoglobin 11.7 g/dL (14.0-18.0); Mean Corpuscular Hemoglobin 27.3 pg (25-34); Mean Corpuscular Hgb Conc 34.2 g/dL (32-36); Mean Corpuscular Volume 79.7 fL (80-100); Mean Platelet Volume 9.9 fL (7.4-10.4); Platelet Count 239 K/uL (130-400); RDW Coefficient of Variation 14.5 % (11.5-14.5); RDW Standard Deviation 41.6 fL (36.4-46.3)
[2022-03-18 06:44] LABS: BUN Creatinine Ratio 24.4 (10-20); Calcium 8.8 mg/dl (8.5-10.1); Creatinine Clr Calc Pharmacy 101.1 ml/min; Est GFR (African American) 121.1 ml/min; Est GFR (Non-African American) 104.5 ml/min; Potassium 3.8 mmol/L (3.5-5.1)
[2022-03-18 06:48] LABS: Partial Thromboplastin Ratio 4.8
[2022-03-18 06:53] LABS: Partial Thromboplastin Time 133.2 Seconds (21.0-31.0)
[2022-03-18 07:00] LABS: Ferritin 982.8 ng/ml (8-388)
[2022-03-18] MEDS: ENOXAPARIN 80 MG/0.8 ML SYR SQ SCH ×2 (07:04→18:17)
[2022-03-18] MEDS: cephALEXin 500 MG CAP PO SCH ×2 (08:48→14:49)
[2022-03-18] MEDS: dexAMETHasone 1 MG TAB PO SCH (08:48)
[2022-03-18] MEDS: PANTOprazole 40 MG TAB PO SCH (08:49)
[2022-03-18] MEDS ORDERED: ENOXAPARIN 80 MG/0.8 ML SYR SQ SCH ×2 (12:15)
--- NOTE | 2022-03-18 17:45 | Discharge Summary ---
Date of Service date of admission - March 14, 2022 date of discharge - March 18, 2022 Admission HPI Per Admitting Provider Very pleasant 51yo male with no PMH presents with 1-2 months of intermittent low back pain, 1-2 months of intermittent swelling of the b/l LEs (RLE >LLE), 1 month of dyspnea on exertion, and 2-3 days of worsening redness of the right leg. Had seen outpatient providers intermittently in the last 1-2 months for the back pain (chiropractor, accupuncture, etc) and the pain indeed did improve. His swelling of the legs also improved. However, about 10 days ago, the RLE began to swell again, and then became quite painful 2-3 days ago. He visited a local urgent care in [place] today and given his symptoms they advised urgent visitation to the [facility] ER. Just before my assessment imaging returned showing extensive RLE DVT, b/l PEs, and a CLAUDE lung mass. Heparin drip was initiated. Principal Diagnosis 1. Extensive RLE DVTs 2. Extensive PEs 3. 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, spine, and liver Discharge Exam gen - NAD, very pleasant mouth - MMM neck - no JVD heart - RRR, s1 s2, no murmur lungs - CTA b/l abd - soft, NT, ND, BS+, band-aid over anterior upper right abdomen from recent liver biopsy; no ecchymoses; negative Patel-Boston's sign right flank ext - right thigh swelling improved; erythema/warmth of right thigh resolved; erythema of distal right leg resolved vascular - pulses b/l feet 2+ skin - erythema and warmth RLE resolved psych - awake, alert, oriented x 3 Discharge Data Allergies Allergy/AdvReac Type Severity Reaction Status Date / Time No Known Allergies Allergy Unverified 03/14/22 11:56 Consultations Hematology/oncology - Tanya Reyes MD [facility] Pulmonology - Jarocho Ahn MD [facility] Radiation Oncology - Morales Song MD Radiology Procedures Performed U/S-guided liver biopsy - performed by radiology, Vincent Christensen MD Ordered Studies Chest CTA 03/14/22 10:51 CT angio chest PE protocol CLINICAL HISTORY: Shortness of breath with exertion. COMPARISON STUDY: No previous studies for comparison. CT DOSE: 302.58 mGy.cm TECHNIQUE: CT Angio of the chest was performed.followed by image post processing with coronal, and sagittal MIP reformats. Contrast Volume: Optiray 320, 120 ml FINDINGS: Vasculature: Large intraluminal filling defects are present within the right and left main pulmonary arteries with extension into the lower lobe pulmonary arteries bilaterally. This also right upper lobe pulmonary emboli. Airway: The airway is clear. No endobronchial lesion is identified. Lungs: There is a large, solid, slightly spiculated left upper lobe mass measuring at least 3.6 x 3.3 cm. The findings are most characteristic of lung cancer. The remainder of the lungs are clear of acute alveolar opacities, air bronchograms or additional pulmonary nodules. Pleura: There is no evidence for pleural effusion. There is no evidence for pneumothorax. Mediastinum: There is no evidence for pathologic adenopathy. There is no evidence for right heart strain. The heart size is within normal limits. The thoracic aorta is within normal limits. There is no evidence for pericardial effusion. Upper abdomen:The adrenal glands were not fully included on this study. Osseous structures: There are multiple lytic lesions seen throughout the thoracic spine most characteristic of metastatic disease. Impression: 1. Positive CTA for pulmonary emboli within both main pulmonary arteries, both lower lobe pulmonary arteries and right upper lobe pulmonary artery. 2. No evidence for right heart strain. 3. 3.6 cm solid spiculated left upper lobe mass most characteristic of lung cancer. 4. Lytic lesions within the spine characteristic of metastatic bone disease. ACT 112: Negative or not required by law. Electronically signed by: Brandon Farfan M.D. 03/14/2022 1:38 PM Venous Doppler Study 03/14/22 10:51 US venous doppler LE RT CLINICAL HISTORY: Right lower extremity swelling, erythema and pain COMPARISON: None available at the time of this dictation. TECHNIQUE: Right lower extremity real-time compression venous ultrasound with Color Doppler imaging. Utilizing real-time ultrasonic imaging multiple real time high-resolution ultrasonic images with compression and noncompression maneuvers of the deep venous system in addition to color doppler imaging were performed from the common femoral vein through the proximal calf veins. FINDINGS: There is extensive thrombus present within the common femoral, superficial femoral, popliteal and posterior tibial veins. This also superficial thrombophlebitis seen within the greater saphenous vein. Impression: Extensive deep venous thrombosis throughout the right lower extremity. ACT 112: Negative or not required by law. Electronically signed by: Brandon Farfan M.D. 03/14/2022 2:08 PM Abdomen/Pelvis CT 03/14/22 15:[address] WITH IV CONTRAST CT DOSE: 277.26 mGy.cm HISTORY: Acute DVT with left upper lobe bronchogenic malignancy. likely stage 4 lung ca; eval distant mets TECHNIQUE: Multiaxial CT images of the abdomen and pelvis were performed following the IV administration of 93 cc of Optiray, A dose lowering technique was utilized adhering to the principles of ALARA. COMPARISON STUDY: CTA chest of same day FINDINGS: There is a 1.1 cm subpleural nodular consolidative opacity of the basal left lower lobe on image 35 series 3. A few scattered tiny subpleural solid nodules are noted throughout the lung bases measuring 1 to 3 mm. No pneumatosis or pneumoperitoneum. Unremarkable spleen, pancreas, gallbladder and adrenal glands. Numerous metastatic lesions are scattered throughout the liver involving the right left hepatic lobes. The largest lesion is noted within the left hepatic lobe measuring 3.7 cm. Coarse calcifications are noted within the superior right hepatic lobe. There is patency of the hepatic and portal veins. Unremarkable kidneys. No hydronephrosis. Contrast is noted within the urinary bladder from recent CTA of the chest. Prostate is upper limits of normal in size. Mild atherosclerosis of the aorta without aneurysm. Extensive acute appearing right-sided DVT is noted within the right common and external iliac veins, common, superficial femoral and profunda femoris veins with surrounding inflammatory stranding. The IVC is patent. No bowel obstruction or bowel wall thickening. Mild fecal retention. Normal appendix. Lytic metastatic disease is noted, particularly within the T9, T12 and L1 vertebral bodies. Acute appearing pathologic fractures of the T9 and T12 superior and inferior endplates with mild vertebral body height loss and no retropulsion. Mild dextroscoliosis of the thoracolumbar junction. Additional lytic metastatic disease of the bony pelvis includes the pubic bones, right superior pubic ramus, sacrum and right iliac bone. IMPRESSION: 1. Multifocal hepatic and osseous metastatic lesions, likely from the primary bronchogenic malignancy. 2. Acute appearing pathologic fractures of the T9 and T12 vertebral bodies with mild vertebral body height loss and no retropulsion. 3. Small scattered bibasilar pulmonary nodules measuring up to 3 mm should be evaluated on follow-up to exclude pulmonary metastasis. There is an additional 1.1 cm subpleural nodular consolidative opacity of the left lower lobe. 4. Acute right-sided iliofemoral DVT. 5. No bowel obstruction or bowel wall thickening. ACT 112: Negative or not required by law. The above report was generated using voice recognition software. It may contain grammatical, syntax or spelling errors. Electronically signed by: Hosea Reese M.D. 03/15/2022 8:26 AM Brain MRI 03/15/22 14:37 MR brain wo/w con CLINICAL HISTORY: stage 4 cancer; eval for brain mets. COMPARISON STUDY: No previous studies for comparison. TECHNIQUE: Multiplanar multisequence images of the brain were performed before and after Gadavist, 7 mL of IV contrast. Diffusion weighted imaging and ADC mapping was also performed. FINDINGS: Extra-axial space: There is no evidence for a subdural hematoma, There are no extra-axial fluid collections. Ventricles and cisterns: The ventricles are normal in size and configuration. There is no evidence for midline shift or mass effect. Parenchyma: On noncontrast images, there is no evidence for an acute hemorrhage or infarct. No acute diffusion abnormalities are noted on diffusion weighted imaging or ADC mapping. However, there is localized cerebral edema seen within the right temporal lobe. The sulci and gyri appear normal without effacement. The midline structures are unremarkable. The posterior fossa structures appear normal. On postcontrast imaging, there is a ring-enhancing mass present at the site of cerebral edema within the right temporal lobe. It measures 14 x 12 x 10 mm and AP, transverse and craniocaudad dimensions respectively. This represents the presence of metastatic disease. A smaller, more subtle ring-enhancing lesion is seen at the junction of the right posterior parietal and occipital lobes. This lesion measures approximately 5 to 6 mm in greatest size. Osseous structures: The paranasal sinuses are well aerated. The mastoid air cells are well aerated. Soft tissues: No focal soft tissue abnormalities are identified. IMPRESSION: 1. There are 2 ring-enhancing lesions present on the right as described above. The findings represent the presence of metastatic disease. This report will be called/faxed to the referring clinician. ACT 112: Negative or not required by law. Electronically signed by: Brandon Farfan M.D. 03/16/2022 9:22 AM Aspiration 03/16/22 07:00 ULTRASOUND-GUIDED FINE-NEEDLE ASPIRATION LIVER CLINICAL HISTORY: Lung mass. Hepatic metastatic disease. COMPARISON STUDY: Abdominal CT dated 03/14/2022.. PROCEDURE: The risks, benefits, and alternatives to the procedure were discussed with the patient. Written informed consent was obtained. The patient was placed supine in ultrasound, and a hypoechoic lesion in the left lobe of the liver was localized by ultrasound and selected for fine needle aspiration. The ventral upper abdomen was shaved, and then prepped/draped in the usual sterile fashion. 1% lidocaine was used for local anesthetic. The lesion was aspirated under ultrasound guidance with 5 passes utilizing 25-gauge needles. 3 specimens were reviewed by the pathologist in real-time and deemed adequate for diagnosis. 2 additional passes were submitted for cell block. The patient tolerated the procedure well and left the department in satisfactory condition. IMPRESSION: Completed fine-needle aspiration of a left lobe liver lesion as above. ACT 112: Negative or not required by law. Electronically signed by: Vincent Christensen M.D. 03/16/2022 10:27 AM Hospital Course (1) Adenocarcinoma of left lung, stage 4: Mr Ibanez presented with acute/chronic right leg swelling/pain/erythema along with dyspnea on exertion - latter present for a month or longer. Venous doppler of RLE showed EXTENSIVE DVTs. CTA chest demonstrated EXTENSIVE PEs along with a large left upper lobe lung mass highly suspicious for lung cancer. Imaging also showed metastatic disease to the thoracic spine. He had been having intermittent back pain for 4-6 weeks prior to admission. He was initiated on heparin infusion and underwent additional imaging including CT a/p and MRI brain. These demonstrated metastatic disease to the liver as well as brain. He was initiated on low-dose dexamethasone therapy to help with bone pain as well as prevent cerebral edema from his brain mets. Dr Jarocho Ahn was consulted from pulmonary, and after coordination with ra diolfausto, decision was made to pursue an u/s-guided liver biopsy for tissue diagnosis. Pathology returned consistent with "metastatic adenocarcinoma of the lung." Following his liver biopsy systemic anticoagulation was held for a full 24 hours. At the 24-hour dameon heparin drip was resumed and he tolerated this without any bleeding from the liver biopsy site. H/H remained stable. On day of discharge the heparin infusion was stopped and he was initiated on lovenox 70mg SC BID. Nursing instructed both him and his on proper injection technique, etc. He was seen by oncology, Dr Martínez, as well as radiation oncology, Dr Song. He will have brain radiation post-discharge for his 2 metastatic lesions - to start within the week post-discharge. Additional testing from his biopsy was pending, and [id number] molecular testing on the peripheral blood was collected & pending at time of discharge. He will follow-up with Dr Martínez & Dr Song within a week of hospital discharge. (2) Brain metastases: x 2 on brain MRI. minimal edema around the right temporal met. started dexamethasone 2mg daily to reduce and keep swelling at minimum. no symptoms from the mets. no headaches or cognitive issues. He will take 4mg of dexamethasone 1 hour prior to radiation treatments on radiation days; on non-radiation days he will continue 2mg. (3) Liver metastases: numerous. s/p liver biopsy by radiology. biopsy c/w metastatic adenocarcinoma of the lung as noted above. (4) Bone metastases: As seen on imaging. Mainly thoracic spine. [place] prn pain. Radiation as outpatient if needed (to t-spine for bone pain). Dexamethasone for brain mets will also help bone pain. (5) DVT (deep venous thrombosis): EXTENSIVE DVTs of the RLE involving most of the deep veins and extending into the iliac vein. There was associated extensive PEs on CT chest imaging. He had had dyspnea for 4+ weeks thus he had had VTE for some time. Risk factor for this extensive VTE event - stage 4 lung ca. At discharge will use lovenox 70mg SC BID. He will require anticoagulation indefinitely. If he is stable from pulmonary standpoint he can switch to a DOAC within a few weeks after discharge. The largest barrier may be financial as he did not have prescription coverage/insurance at time of discharge. However, he has applied for such. A lovenox assistance program application was completed in the event he remains without prescription insurance. (6) Pulmonary emboli: As seen on CTA chest. Extensive b/l. See above. (7) Cellulitis of leg, right: The erythema of the RLE was most likely due to DVT and superficial phlebitis. I could not exclude an early cellulitis, however. Either way erythema mainly resolved by discharge. s/p 3 days of Rocephin while here, and was transitioned to 4 additional days of keflex. (8) Microcytic anemia: Fe studies c/w anemia of chronic disease. I cannot exclude a chronic thalaseemia. (9) Hyperglycemia: Hemoglobin a1c was 5.8% consistent with the earliest of pre-diabetes. This can simply be followed for now without any therapy and with routine blood work. patient did not have a PCP at time of discharge - we will assist him in securing him Total Time Total Time Spent Total Time Spent (In Minutes): 60 Discharge Plan Discharge Items Patient Disposition: Home - Self-Care Reason For Visit: Right leg DVTs; Pulmonary emboli; Left lung mass Discharge Diagnosis: 1. Right leg DVTs 2. Pulmonary emboli 3. Stage 4 lung cancer Activity: As commented below Activity Comment: light activities only; no heavy exertional activities Lifting: No more than 10 pounds Bathing: No limitations Sexual Activity: Wait until after follow-up appointment Exercise/Sports: Wait until after follow-up appointment Driving/Machine Use: Resume 3 days after discharge Non-emergency contact: Primary Care Provider and Oncologist Call non-emergency contact if: you have any medication questions, your symptoms worsen, your pain is not controlled, your pain is worsening, your pain is unusual for you and your pain is concerning for you Follow-up/Referrals: [facility] [Provider Group] (we will assist you in securing a new family doctor for your primary care needs ) Morales Song MD [Physician] - (date/time of first radiation treatment to be determined ) Tanya Reyes MD [Physician] - (follow-up appointment to be determined ) Diet: Regular Addtl Attending Provider Instructions: Joe Park were hospitalized at [facility] for blood clots of the right leg ("DVTs") and blood clots of the lungs ("pulmonary emboli"). While receiving CT scans for the blood clots we noted that there was a mass in the upper portion of the left lung. Additional CT scans showed spots/lesions in the liver and spine. We also performed an MRI of the brain showing 2 spots/lesions in the right brain. A biopsy was taken of one of the lesions in the liver. The biopsy was performed by radiology. The biopsy showed the presence of lung cancer. The lung cancer has spread from the left lung to the areas of the body mentioned above. [facility], Oncology, and Radiation Oncology all saw you in consultation. There are additional tests that are being run on the blood, as well as on the biopsy, to give us additional information about the cancer. On 03/17/22 the radiation oncology department did some testing to prep you for radiation treatments. These will start the week of 03/19/22. The blood clots were initially treated with intravenous heparin. This was stopped, and we transitioned over to lovenox injections which will be taken twice daily at home for your blood clots. Recommendations - 1. Dexamethasone steroid - this will help with bone pain from the cancer, and it will also keep swelling down around the 2 spots in the brain. Take as follows - * 2mg (1 tablet) by mouth once daily with food on NON-RADIATION days; start this TOMORROW, 03/19/22 * 4mg (2 tablets) by mouth with food on RADIATION days; take 1 hour prior to the radiation treatment 2. Omeprazole 40mg once daily. This is an acid capacitor tester to prevent stomach irritation from the dexamethasone steroid. Start this TOMORROW, 03/19/22. 3. Lovenox (Enoxaparin) injections - 70mg subcutaneous twice daily, about 12 hours apart. This is your blood thinner for the blood clots. * Take your first shot TOMORROW MORNING on 03/19/22. Take about 7am-8am. Take your evening dose about 12 hours after the morning dose. * Be sure to rotate sites on the abdominal wall. * The lovenox shots can leave a small lump at the site of the injection; this is normal. * The lovenox shots can also leave bruises on the abdominal wall; this is normal and the bruising will fade away after a few days. 4. For possible skin infection of the right leg - * cephalexin antibiotic, 500mg three times daily x 3 days * First dose AM of 03/19/22 5. Right leg pain, back pain, etc - * hydrocodone-acetaminophen pain killer medication - 1 tablet every 6 hours as needed for pain * know that this medication contains [id number]-mtyatdr Tylenol (acetaminophen) in it; thus, if you are taking this medication regularly, DO NOT take extra [id number] Tylenol * this medication often causes constipation; thus, use a stool softener such as miralax and/or Senokot for constipation relief * do not drive a car OR drink alcohol if using this narcotic pain killer medication as it can cause you to be sleepy Follow-up -- we will assist you in arranging appointments with oncology, radiation oncology, and primary care/family medicine Return to [facility] if -- * you have fevers over 100.4 degrees * you have worsening shortness of breath * you have significant bleeding from any location as listed below * you have worsening pain in your right leg, back, or any other location * you have chest pains * you have a severe headache that is not responding to your pain medication * any other concerns Mr Ibanez - it was my pleasure to care for you during this difficult time! Please continue to feel better - Dr Teixeira Addtl [facility] Provider Instructions: Anticoagulant (blood thinner) Medication Instructions: Your DVTs and Pulmonary emboli are typically treated with an anticoagulant. Anticoagulants will thin your blood to help prevent new clots. Your anticoagulant is "LOVENOX" (also known as enoxaparin). * You should take your medication exactly as directed. * Never skip a dose. * Never take a double dose. If you miss a dose, take it as soon as you remember. Call your Primary Care doctor or cancer doctor if you experience any of the following: * Swelling or Pain in your leg * Sudden, continuous pain deep in a muscle * Pain that worsens when you are active or when you stand still for a long time * Chest Pain * Sudden Shortness of Breath * Rapid or pounding heart beat * Fainting * Dizziness * Cough with blood or bloody sputum * Sweating more than normal * Bruises * Heavy or uncontrolled bleeding * Blood in your urine, stool or vomit * Black or tarry stools * Heavy nose bleeding Caring for Your Self at Home: * Avoid sitting, standing or lying down for long periods without moving your legs and feet * When traveling by car, stop to get out and move around at least once every 3 hours * On long airplane, train or bus rides, get up and move around when possible * If you can't get up, wiggle your toes and tighten your calves to keep your blood moving * When shaving please use an electric shaver in place of a traditional razor; this will reduce the chances of bleeding from a cut Pending Studies at Discharge: No Stand-Alone Forms: My [facility] [employer], Smoking Cessation Medications and DC Order Prescriptions: New hydrocodone-acetaminophen 5-325 mg Tablet 1 tab PO Q6H PRN (Reason: pain) Qty: 30 RF: 0 enoxaparin [Lovenox] 80 mg/0.8 mL Syringe 70 mg subcut Q12H Qty: 60 RF: 0 omeprazole 40 mg capsule,delayed release(DR/EC) 40 mg PO DAILY Qty: 30 RF: 2 dexamethasone 2 mg tablet 2 mg PO .daily as directed Qty: 60 RF: 1 Discontinued dexamethasone 4 mg tablet 4 mg PO .COMPLEX 3 Days Qty: 3 RF: 0 Discharge Orders: Discharge Order (Routine); Ordered 03/18/22 Ordered By: Guanakito Tan/Other Patient Handouts: Lovenox Prefilled Syringe 80 mg/0.8 mL, Understanding Deep Vein Thrombosis, Pulmonary Embolism Admission Data Admit Date/Time: 03/14/22 15:39 Attending Provider: Guanakito Teixeira Admit Provider: Guanakito Teixeira Primary Care Provider: PCP,NO Other Providers: Tanya Reyes ; Blaze Ahn ; Guanakito Teixeira ; Yudi Mena. Other Interventions: Discharge Summary Assessment (RN) Last Done: 03/18/22 17:40 Coding Level of Care Code D/C DAY MANAGEMENT >30 MINS Diagnoses Brain metastases C79.31 Liver metastases C78.7 DVT (deep venous thrombosis) I82.409 Pulmonary emboli I26.99 Bone metastases C79.51 Cellulitis of leg, right L03.115 Microcytic anemia D50.9 Adenocarcinoma of left lung, stage 4 C34.92 Hyperglycemia R73.9
[2022-03-18 18:30] LABS: Partial Thromboplastin Time 28.6 Seconds (21.0-31.0)
[2022-03-20 07:14] LABS: Estimated Average Glucose 120 mg/dl; Hemoglobin A1C 5.8 % (4.5-5.6)
== END 2022-03-18 19:08 | disposition home or self-care (01) | DRG 180 ==
LOC: ED 09:40 → 2S 15:39

== ENCOUNTER 2023-08-19 14:34 | Inpatient (IN) ==
--- NOTE | 2023-08-19 15:00 | ED Triage Note ---
Date of Service August 19, 2023 History of Present Illness This patient was briefly evaluated while in triage. An abbreviated physical exam was performed. This patient is a 53-year-old Male who presents to the ED for evaluation of metastatic lung cancer had first treatment with immunotherapy last week has been feeling SOB BP has been elevated right leg pain-hx of DVT/PE no currently on any blood thinners-off x 1 month Physical Exam GENERAL: NAD CARDIOVASCULAR: RRR RESPIRATORY: CTA ABDOMEN: BS x 4. Distended. Diffusely TTP. Initial orders for labs and / or imaging were placed and patient was placed in the waiting area until a bed is available. Please see further documentation for the full ED course. MDM / Impression Impression Impression: Comfort measures only status, Hemoperitoneum, Liver metastases, Adenocarcinoma of left lung, stage 4, Acute hyponatremia, Elevated bilirubin
[2023-08-19 15:33] LABS: Hematocrit (blood only) 25.1 % (42.0-52.0); Mean Corpuscular Hgb Conc 35.9 g/dL (32.0-36.0); Mean Corpuscular Volume 83.7 fL (80.0-100.0); Mean Platelet Volume 11.3 fL (9.4-12.4); Platelet Count 122 K/uL (130-400); RDW Coefficient of Variation 17.6 % (11.5-14.5); RDW Standard Deviation 52.3 fL (36.4-46.3); White Blood Count 27.11 K/ul (4.8-10.8)
[2023-08-19 15:43] LABS: Anion Gap 10 (3-11); BUN Creatinine Ratio 20.7 (10-20); Blood Urea Nitrogen 17 mg/dl (6-23); Calcium 7.9 mg/dl (8.6-10.3); Carbon Dioxide 23 mmol/L (21-32); Chloride 89 mmol/L (98-107); Glucose 134 mg/dl (70-99(Fasting)); Potassium 4.8 mmol/L (3.5-5.1); Sodium 122 mmol/L (136-145)
[2023-08-19 15:47] LABS: Basophils % (auto) 0.4 %; Eosinophils # (auto) 1.54 K/uL (0.00-0.50); Eosinophils % (auto) 5.7 %; Immature Granulocytes # (auto) 1.38 K/uL (0.01-0.20); Immature Granulocytes % (auto) 5.1 %; Lymphocytes # (auto) 0.75 K/uL (1.20-3.40); Lymphocytes % (auto) 2.8 %; Monocytes # (auto) 3.74 K/uL (0.11-0.59); Monocytes % (auto) 13.8 %; Neutrophils % (auto) 72.2 %; RBC Morphology Unremarkable
[2023-08-19 15:58] LABS: INR 1.5 (0.9-1.1); Partial Thromboplastin Ratio 1.2; Partial Thromboplastin Time 33.8 Seconds (21.0-31.0); Prothrombin Time 16.5 Seconds (9.0-12.0)
[2023-08-19 16:01] LABS: Alanine Aminotransferase 156 U/L (7-52); Albumin Globulin Ratio 1.4 (0.9-2); Albumin Level 3.2 gm/dl (3.4-5.0); Alkaline Phosphatase 1661 U/L (34-104); Aspartate Aminotransferase 147 U/L (13-39); Bilirubin,Total 21.2 mg/dl (0.2-1.0); Globulin 2.3 gm/dl (2.5-4.0); Magnesium 2.3 mg/dl (1.7-2.4); Total Protein 5.5 gm/dl (6.0-8.3)
[2023-08-19] MEDS ORDERED: OPTIRAY 320 500ml IV ONE (16:07)
--- NOTE | 2023-08-19 16:58 | Emergency Department Note ---
Impression & Plan Comfort measures only status, Hemoperitoneum, Liver metastases, Adenocarcinoma of left lung, stage 4, Acute hyponatremia, Elevated bilirubin ED Provider Note Provider: Kishore Reddy MD DATE OF SERVICE: 08/19/2023 CHIEF COMPLAINT: Shortness of breath HISTORY OF PRESENT ILLNESS: Patient is a 53-year-old gentleman unfortunate history of stage IV lung adenocarcinoma metastatic in nature with a history of PE presenting here today complaining of increased shortness of breath. Recently started immunotherapy with Keytruda this past week. States been off his blood thinners for about 6 weeks. Last 10 days has had some increasing pain around the right knee particular at night as well as increasing shortness of breath. Intermittently eating some but losing weight. Denies significant chest pain to me. Some right upper abdominal pain at times. Having some dark urine as well as some jaundice symptoms according to patient and family. Denies fever. Denies significant leg swelling PAST MEDICAL HISTORY: As noted above MEDICATIONS: Reviewed home medications currently on Keytruda. SOCIAL HISTORY: PHYSICAL EXAM: GENERAL: alert and oriented in no acute distress on stretcher somewhat fatigued and appears Head: normocephalic and atraumatic EYES: No injection but severe jaundice noted. NECK: Trachea midline. Supple. ENT: Mucous membranes pink and moist. LUNGS: Airway patent. No retractions or tachycardia HEART: Regular tachycardic rate and rhythm. No chest wall tenderness ABDOMEN: Soft mild right upper quadrant tenderness. SKIN: Acyanotic, warm, dry, without rashes EXTREMITIES: Without swelling, tenderness or deformity NEUROLOGICAL: No focal deficits. No aphasia. No facial droop or slurred speech. EK bpm sinus tachycardia. No PVC. Some baseline artifact. No clear acute ST segment elevation in this artifact. QTc 440. CONTINUOUS CARDIAC MONITORING: was ordered and showed a heart rate of 110s-120s bpm in sinus tachycardia Patient's laboratory studies and imaging reviewed. Differential includes Reactive airway disease, pneumonia, pneumothorax, COPD, CHF, infections, cardiac ischemia, pulmonary embolism, musculoskeletal, gastrointestinal, as well as other pathologies. IMPRESSION/MEDICAL DECISION MAKING: Reviewed prior notes and medical records as well as labs. Patient with extensive medical history including VTE and metastatic lung cancer. Blood work here today concerning with significant increased leukocytosis now approaching 27,000 with a slightly worsened anemia of 9.0. Significant hyponatremia 122 noted today with elevated LFTs. Troponin 47 but somewhat downtrending from a more distant previous. Sent for CT of the chest given his history of VTE and the oncological process with his chest pain or shortness of breath evaluate for possible PE. Patient does have abdominal ascites noted on imaging. Reviewed CT scan. CT report shows nonocclusive filling defect age-indeterminate but likely chronic PEs. Small to moderate indeterminant upper abdominal fluid on the CT reported by radiology questioning hemoperitoneum with likely focus from right hepatic lesion representing hemorrhage. Scattered pulmonary nodules representing likely pulmonary metastatic progression noted. This would explain the slightly worsened anemia today. Not hypotensive at this time. Sent for formal CT of the abdomen pelvis for full evaluation of the abdominal pathology. Type and screen ordered. Discussed with patient he refers transfer to [facility] given his ongoing oncological care there if possible. Contacted [facility] transfer center regarding the patient per his request and need for IR services given the hemoperitoneum and active bleeding from his liver mass. I have a lower suspicion for acute infection. Given a small bolus of normal saline for hydration. Tachycardia likely reflexive. Discussed with solid organ oncology at [facility] and accepted there. Will await formal bed and patient require helicopter transfer given the distance with his hemoperitoneum. Repeat H&H at 6 PM with a hemoglobin of 7.8. Given this the patient was consented for blood and 1 unit of packed red blood cells was ordered. CT the abdomen pelvis returns with moderate to large amount of hemoperitoneum without a clearly identified source on this image. Interval progression of hepatic metastatic disease. Focal left renal infarct is noted as well as an occlusive thrombus in the left common iliac vein. No bowel obstruction per report as well as findings of osteoblastic metastatic disease. Ongoing discussion with [facility] oncology team and ICU regarding their availability of beds and care for the patient tonight given his processes here. Obviously not anticoagulating given his active hemorrhage and transfusion requirement at this time but the blood clots are concerning. Further discussion with the [facility] team regarding the patient's advanced oncological disease with these multiple different serious issues including clotting issues and bleeding they recommended I have discussion with the patient regarding his wishes. They state the patient has had aggressive treatment and from their records they are unsure that additional treatment for this cancer would be possible. I discussed with the patient at bedside the new CT findings as well as the information from [facility]. Discussed with him that while he is bleeding into his abdomen from his liver mass and this possibly could be intervened on to try to stop this bleeding, his underlying clotting issues as well as his cancer likely are not very treatable. Discussed with him poor prognosis in general based on my discussion with the staff at the [facility]. Discussed with him what his wishes were at this time regarding possible transfer versus focusing on comfort. Patient states his primary goal is to make consciousness as long as possible. He denies pain now but states he does not want to be in pain. I discussed with him that likely if this was not intervened upon regarding the bleeding likely he may only have a day or 2 prognosis but this would be a estimate. Discussed with him that if transfer to [facility] for possible embolization to stop the bleeding he may have a longer period but I could not guarantee this. Discussed with him there could be complications and would also farther from home. He states that at this time he did rather just focus on comfort. He confirms that he would be DO NOT RESUSCITATE with no intubation or CPR. He reports he would like to talk with palliative medicine as possible. We will discontinue lab draws and blood transfusion. DIAGNOSIS: Shortness of breath, hemoperitoneum, bleeding liver mass, lung adenocarcinoma metastatic, hyponatremia, elevated bilirubin, tachycardia DISPOSITION: Evaluated by the hospitalist for further care here at the hospital on comfort measures status with plans for hospice. Critical Care I have personally spent 75 minutes of critical care time in the direct management of this patient. This includes bedside care, interpretation of diagnostic studies, and testing, discussion with consultants, patient, and family members, and other required patient management activities. These 75 minutes is in excess of all separately billable procedures. Past Med/Surg History Medical History (Updated 08/19/23 @ 19:54 by Kishore Reddy M.D.) Adenocarcinoma of left lung, stage 4 Liver metastases Brain metastases s/p brain radiation Bone metastases s/p radiation to T-spine and pelvis Pulmonary emboli DVT (deep venous thrombosis) Surgical History No pertinent past surgical history Family History Father , age 82 COPD (chronic obstructive pulmonary disease) Mother , age 82 Myocardial infarction Social History (Updated 03/17/22 @ 09:16 by Shannan Wharton PA-C) Smoking Status: Never smoker Second Hand Exposure: Yes (Father smoked 3 packs/day.); Hx Alcohol Use: Yes Alcohol type: beer and wine Alcohol Intake Frequency: Monthly or Less Hx Substance Use: No Preferred Language: Guatemalan Communication Ability: Effective Tin Roofer Required: No Beliefs That Will Affect Care: None marital status: Current Living Situation: Alone current occupational status: employed 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[employer]; 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 How many Children do You have: 0 Feels Safe at Home: Yes Assistive Devices: None Allergies Allergies Allergy/AdvReac Type Severity Reaction Status Date / Time No Known Allergies Allergy Verified 08/19/23 18:52 Home Meds Home Medications Medication Instructions Recorded Confirmed 2 Chemo Medications 1 dose PO DAILY 08/19/23 08/19/23 enoxaparin 100 mg/mL subcutaneous 90 mg subcut DAILY 08/19/23 08/19/23 syringe (Lovenox) oxycodone 5 mg tablet 5 mg PO .Q4-6HR PRN Pain 08/19/23 08/19/23 Results & Data (ED) Vital Signs Vital Signs - 24 hr 08/19/23 14:58 08/19/23 14:58 08/19/23 16:14 Temperature 36.2 C L Temperature Source Temporal Artery Scan Pulse Rate 117 H Pulse Rate [Apical] Respiratory Rate 18 Respiratory Effort / Characteristics Non-Labored Non-Labored Respiratory Depth Normal Blood Pressure 135/78 Blood Pressure [Right Arm] 157/107 H Blood Pressure Mean 97 Blood Pressure Mean [Right Arm] 123 Blood Pressure Position [Right Arm] Semi-fowlers Pulse Oximetry 99 99 Oxygen Delivery Method Room Air Room Air Room Air Sepsis Recent Fever Within 48 Hours No Sepsis New/Unexplained Change in Mental Status No Sepsis Action Taken by Nursing No Action Required 08/19/23 18:19 08/19/23 18:19 08/19/23 18:43 Temperature Temperature Source Pulse Rate 111 H Pulse Rate [Apical] 109 H Respiratory Rate 27 H Respiratory Effort / Characteristics Respiratory Depth Blood Pressure Blood Pressure [Right Arm] 125/93 Blood Pressure Mean Blood Pressure Mean [Right Arm] 103 Blood Pressure Position [Right Arm] Pulse Oximetry 98 99 Oxygen Delivery Method Room Air Room Air Sepsis Recent Fever Within 48 Hours Sepsis New/Unexplained Change in Mental Status Sepsis Action Taken by Nursing Laboratory Data 08/19/23 18:04 08/19/23 15:12 Lab Results 08/19/23 08/19/23 08/19/23 Range/Units 15:12 16:55 17:43 WBC 27.11 H (4.8-10.8) K/ul RBC 3.00 L (4.70-6.10) M/uL Hgb 9.0 L (14.0-18.0) g/dl Hct 25.1 L (42.0-52.0) % MCV 83.7 (80.0-100.0) fL MCH 30.0 (25.0-34.0) pg MCHC 35.9 (32.0-36.0) g/dL RDW Std Deviation 52.3 H (36.4-46.3) fL RDW Coeff of Marizol 17.6 H (11.5-14.5) % Plt Count 122 L (130-400) K/uL MPV 11.3 (9.4-12.4) fL Immature Gran % (Auto) 5.1 % Neut % (Auto) 72.2 % Lymph % (Auto) 2.8 % Fergus % (Auto) 13.8 % Eos % (Auto) 5.7 % Baso % (Auto) 0.4 % Neut # (Auto) 19.60 H (1.40-6.50) K/uL Lymph # (Auto) 0.75 L (1.20-3.40) K/uL Fergus # (Auto) 3.74 H (0.11-0.59) K/uL Eos # (Auto) 1.54 H (0.00-0.50) K/uL Baso # (Auto) 0.10 (0.00-0.20) K/uL Immature Gran # (Auto) 1.38 H (0.01-0.20) K/uL RBC Morphology Unremarkable PT 16.5 H (9.0-12.0) Seconds INR 1.5 H (0.9-1.1) APTT 33.8 H (21.0-31.0) Seconds PTT Ratio 1.2 Sodium 122 L (136-145) mmol/L Potassium 4.8 (3.5-5.1) mmol/L Chloride 89 L (98-107) mmol/L Carbon Dioxide 23 (21-32) mmol/L Anion Gap 10 (3-11) BUN 17 (6-23) mg/dl Creatinine 0.82 (0.6-1.4) mg/dl Est Cr Clr Drug Dosing Not Reportable Est GFR ( Amer) 117.0 ml/min Est GFR (Non-Af Amer) 101.0 ml/min BUN/Creatinine Ratio 20.7 H (10-20) Glucose 134 H (70-99(Fasting)) mg/dl Calcium 7.9 L (8.6-10.3) mg/dl Magnesium 2.3 (1.7-2.4) mg/dl Total Bilirubin 21.2 H (0.2-1.0) mg/dl AST 147 H (13-39) U/L ALT 156 H (7-52) U/L Alkaline Phosphatase 1661 H (34-104) U/L Ammonia TNP Troponin I High Sens 47.0 H 45.5 H (0-20) pg/ml Total Protein 5.5 L (6.0-8.3) gm/dl Albumin 3.2 L (3.4-5.0) gm/dl Globulin 2.3 L (2.5-4.0) gm/dl Albumin/Globulin Ratio 1.4 (0.9-2) Blood Type O Positive Antibody Screen NEGATIVE 08/19/23 Range/Units 18:04 WBC (4.8-10.8) K/ul RBC (4.70-6.10) M/uL Hgb 7.8 L (14.0-18.0) g/dl Hct 21.7 L (42.0-52.0) % MCV (80.0-100.0) fL MCH (25.0-34.0) pg MCHC (32.0-36.0) g/dL RDW Std Deviation (36.4-46.3) fL RDW Coeff of Marizol (11.5-14.5) % Plt Count (130-400) K/uL MPV (9.4-12.4) fL Immature Gran % (Auto) % Neut % (Auto) % Lymph % (Auto) % Fergus % (Auto) % Eos % (Auto) % Baso % (Auto) % Neut # (Auto) (1.40-6.50) K/uL Lymph # (Auto) (1.20-3.40) K/uL Fergus # (Auto) (0.11-0.59) K/uL Eos # (Auto) (0.00-0.50) K/uL Baso # (Auto) (0.00-0.20) K/uL Immature Gran # (Auto) (0.01-0.20) K/uL RBC Morphology PT (9.0-12.0) Seconds INR (0.9-1.1) APTT (21.0-31.0) Seconds PTT Ratio Sodium (136-145) mmol/L Potassium (3.5-5.1) mmol/L Chloride (98-107) mmol/L Carbon Dioxide (21-32) mmol/L Anion Gap (3-11) BUN (6-23) mg/dl Creatinine (0.6-1.4) mg/dl Est Cr Clr Drug Dosing Est GFR ( Amer) ml/min Est GFR (Non-Af Amer) ml/min BUN/Creatinine Ratio (10-20) Glucose (70-99(Fasting)) mg/dl Calcium (8.6-10.3) mg/dl Magnesium (1.7-2.4) mg/dl Total Bilirubin (0.2-1.0) mg/dl AST (13-39) U/L ALT (7-52) U/L Alkaline Phosphatase (34-104) U/L Ammonia Troponin I High Sens (0-20) pg/ml Total Protein (6.0-8.3) gm/dl Albumin (3.4-5.0) gm/dl Globulin (2.5-4.0) gm/dl Albumin/Globulin Ratio (0.9-2) Blood Type Antibody Screen Administered Medications Discontinued Medications Sodium Chloride (Nss) 500 mls @ 999 mls/hr IV .Q31M ONE Stop: 08/19/23 18:11 Last Infusion: 08/19/23 19:28 Dose: Infused Documented By: Admin: 08/19/23 18:21 Dose: 999 mls/hr Documented By: ML Ioversol (Optiray 320 500ml) 118 ml IV ONCE ONE Stop: 08/19/23 16:08 Last Admin: 08/19/23 15:58 Dose: 118 ml Documented By: SH Ioversol (Optiray 320 100ml) 93 ml IV ONCE ONE Stop: 08/19/23 18:02 Last Admin: 08/19/23 17:52 Dose: 93 ml Documented By: Imaging Data Radiologist's Impression: Chest CTA 08/19/23 15:02 CHEST CTA for PULMONARY ARTERIES CT DOSE: 451.29 mGy.cm HISTORY: Shortness of breath, HX OF PE/DVT, METASTATIC LUNG CA TECHNIQUE: Multiaxial CT images of the chest were performed following the intravenous administration of contrast to evaluate the pulmonary arteries. 3D/Maximal intensity projection images were also obtained. Sagittal and coronal reformations were also reviewed. A dose lowering technique was utilized adhering to the principles of ALARA. COMPARISON STUDY: Abdominal MRI 07/16/2023. PET CT 07/05/2023. FINDINGS: Limited views of the upper abdomen demonstrate the patient's known hepatic metastatic disease and intrahepatic bile duct dilatation. Small to moderate amount of fluid within the upper abdomen which appears to be intermediate density. Therefore, this likely represents hemoperitoneum. Hyperdense foci within the right hepatic lobe are partially visualized and likely represent hemorrhage associated with the hepatic lesions. This likely accounts for the upper abdominal intraperitoneal hemorrhage. Normal caliber thoracic aorta with no evidence for a dissection. There is elevation of the right hemidiaphragm. Aortic few nonocclusive linear filling defects seen within the bilateral lower lobe and lingular pulmonary arteries. These are consistent with age indeterminate pulmonary emboli. These favor chronic nonocclusive pulmonary emboli. No evidence for right-sided heart strain. No pleural or pericardial effusions. Scattered osteoblastic metastatic disease is again noted. This is similar to the prior studies. Chronic pathologic compression fractures also noted within the thoracic spine. No mediastinal or hilar lymphadenopathy. There is again noted a 2 cm spiculated lesion within the right upper lobe. There are multiple additional new scattered subcentimeter pulmonary nodules seen within the lungs. These likely represent metastatic disease. Right basilar linear densities favor subsegmental atelectasis or scarring. The central airways are patent. No pneumothorax. IMPRESSION: 1. Linear/weblike nonocclusive filling defects seen within the bilateral lower lobe pulmonary arteries consistent with age indeterminate pulmonary emboli. These favor chronic pulmonary emboli. 2. Small to moderate amount of intermediate density fluid within the upper abdomen likely representing hemoperitoneum. Hyperdense foci within the right hepatic lobe metastatic lesions likely representing hemorrhage. This likely accounts for the upper abdominal intraperitoneal hemorrhage. 3. Multiple new scattered subcentimeter pulmonary nodules likely representing progressive metastatic disease. 4. Redemonstration of the 2 cm spiculated left upper lobe lesion. 5. Osteoblastic metastatic disease again noted. ACT 112: Negative or not required by law. Electronically signed by: Main Scott M.D. 08/19/2023 5:04 PM Abdomen/Pelvis CT 08/19/23 17:[address] WITH IV CONTRAST CT DOSE: 856.9 mGy.cm HISTORY: Intra-abdominal hemorrhage. bleeding, cancer liver TECHNIQUE: Multiaxial CT images of the abdomen and pelvis were performed following the use of intravenous contrast. A dose lowering technique was utilized adhering to the principles of ALARA. COMPARISON STUDY: Chest CTA 08/19/2023. PET CT 07/05/2023. Abdominal MRI 07/16/2023. FINDINGS: Multiple new subcentimeter pulmonary nodules are noted at the lung bases. This suggests progressive metastatic disease. No pneumoperitoneum. No pneumatosis. 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 This is most pronounced within the right iliac bone. Old compression deformities again noted within the thoracic spine. Pulmonary emboli are better present on the same day chest CT. Significant increase in size and number of the extensive hepatic metastatic disease. The dominant lesion within the anterior segment of the right hepatic lobe appears to extend beyond the liver capsule. A few additional scattered hepatic lesions also likely extend beyond the hepatic capsule. There is a moderate to large amount of fluid within the abdomen which is intermediate density consistent with hemoperitoneum. The exact etiology of the hemoperitoneum is not identified. However, this may be secondary to hemorrhage from the hepatic lesions extending beyond the hepatic capsule. Intrahepatic bile duct dilatation again noted. The spleen, adrenal glands, pancreas, and gallbladder are unremarkable. No hydronephrosis. Focal hypodensity within the left kidney may represent a renal infarct. The left and middle hepatic veins are severely attenuated and may be partially obliterated by the hepatic lesions. No retroperitoneal lymphadenopathy. Dense contrast within the bladder from the recent CT examination. This results in suboptimal evaluation of the bladder. No definite bladder wall thickening. Small fat-containing left inguinal hernia. No bowel wall thickening or obstruction. Normal appendix. Mild body wall edema. Occlusive thrombus within the left common iliac vein. IMPRESSION: 1. Moderate to large amount of hemoperitoneum. The etiology is not clearly identified on this study but may be secondary to the multiple hepatic masses which extend beyond the hepatic capsule. 2. Interval progression of the hepatic metastatic disease. 3. Focal left renal infarct. 4. No bowel wall thickening or obstruction. 5. Osteoblastic metastatic disease again noted. 6. Occlusive thrombus within the left common iliac vein. 7. Additional findings as described above. ACT 112: Negative or not required by law. Electronically signed by: Main Scott M.D. 08/19/2023 7:06 PM Discharge Plan Visit Data Chief Complaint: Shortness of Breath/Dyspnea Stated Complaint: SHORTNESS OF BREATH - ON IMMUNOTHERAPY ED Provider: Kishore Reddy Discharge Problem: Comfort measures only status, Hemoperitoneum, Liver metastases, Adenocarcinoma of left lung, stage 4, Acute hyponatremia, Elevated bilirubin Patient Disposition: Being Evaluated by Hospitalist Forms [facility] Pres[facility] Prescriptions: No Action 2 Chemo Medications 1 dose PO DAILY Rx Instructions: PER PT "TAKES 2 CHEMO MEDS". UNABLE TO VERIFY. oxycodone 5 mg tablet 5 mg PO .Q4-6HR PRN (Reason: Pain) enoxaparin [Lovenox] 100 mg/mL Syringe 90 mg SUBCUT DAILY Rx Instructions: PT "PRETTY SURE 90 MG". Referrals Referrals: Jaydon Alexander DO [Primary Care Provider] -
--- NOTE | 2023-08-19 17:05 | CT Scan Report ---
CHEST CTA for PULMONARY ARTERIES CT DOSE: 451.29 mGy.cm HISTORY: Shortness of breath, HX OF PE/DVT, METASTATIC LUNG CA TECHNIQUE: Multiaxial CT images of the chest were performed following the intravenous administration of contrast to evaluate the pulmonary arteries. 3D/Maximal intensity projection images were also obta ined. Sagittal and coronal reformations were also reviewed. A dose lowering technique was utilized a dhering to the principles of ALARA. COMPARISON STUDY: Abdominal MRI 07/16/2023. PET CT 07/05/2023. FINDINGS: Limited views of the upper abdomen demonstrate the patient's known hepatic metastatic disea se and intrahepatic bile duct dilatation. Small to moderate amount of fluid within the upper abdomen which appears to be intermediate density. Therefore, this likely represents hemoperitoneum. Hyperdens e foci within the right hepatic lobe are partially visualized and likely represent hemorrhage associa rhea with the hepatic lesions. This likely accounts for the upper abdominal intraperitoneal hemorrhage . Normal caliber thoracic aorta with no evidence for a dissection. There is elevation of the right he midiaphragm. Aortic few nonocclusive linear filling defects seen within the bilateral lower lobe and lingular pulmonary arteries. These are consistent with age indeterminate pulmonary emboli. These favo r chronic nonocclusive pulmonary emboli. No evidence for right-sided heart strain. No pleural or elizabeth cardial effusions. Scattered osteoblastic metastatic disease is again noted. This is similar to the p rior studies. Chronic pathologic compression fractures also noted within the thoracic spine. No media stinal or hilar lymphadenopathy. There is again noted a 2 cm spiculated lesion within the right upper lobe. There are multiple additional new scattered subcentimeter pulmonary nodules seen within the osmani ngs. These likely represent metastatic disease. Right basilar linear densities favor subsegmental ate lectasis or scarring. The central airways are patent. No pneumothorax. IMPRESSION: 1. Linear/weblike nonocclusive filling defects seen within the bilateral lower lobe pulmonary arterie s consistent with age indeterminate pulmonary emboli. These favor chronic pulmonary emboli. 2. Small to moderate amount of intermediate density fluid within the upper abdomen likely representin g hemoperitoneum. Hyperdense foci within the right hepatic lobe metastatic lesions likely representin g hemorrhage. This likely accounts for the upper abdominal intraperitoneal hemorrhage. 3. Multiple new scattered subcentimeter pulmonary nodules likely representing progressive metastatic disease. 4. Redemonstration of the 2 cm spiculated left upper lobe lesion. 5. Osteoblastic metastatic disease again noted. ACT 112: Negative or not required by law. Electronically signed by: Main Scott M.D. 08/19/2023 5:04 PM
[2023-08-19] MEDS ORDERED: SODIUM CHLORIDE 0.9% 500 ML IV ONE (17:41)
[2023-08-19] MEDS ORDERED: OPTIRAY 320 100ml IV ONE (18:01)
[2023-08-19 18:38] LABS: Hematocrit (blood only) 21.7 % (42.0-52.0); Hemoglobin 7.8 g/dl (14.0-18.0)
[2023-08-19] MEDS ORDERED: SODIUM CHLORIDE 0.9% 250 ML IV PRN (18:58)
--- NOTE | 2023-08-19 19:09 | CT Scan Report ---
ABDOMEN AND PELVIS CT WITH IV CONTRAST CT DOSE: 856.9 mGy.cm HISTORY: Intra-abdominal hemorrhage. bleeding, cancer liver TECHNIQUE: Multiaxial CT images of the abdomen and pelvis were performed following the use of intrave nous contrast. A dose lowering technique was utilized adhering to the principles of ALARA. COMPARISON STUDY: Chest CTA 08/19/2023. PET CT 07/05/2023. Abdominal MRI 07/16/2023. FINDINGS: Multiple new subcentimeter pulmonary nodules are noted at the lung bases. This suggests pro gressive metastatic disease. No pneumoperitoneum. No pneumatosis. 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 This is most pronounced within the right iliac bone. Old compression deformit ies again noted within the thoracic spine. Pulmonary emboli are better present on the same day chest CT. Significant increase in size and number of the extensive hepatic metastatic disease. The dominant lesion within the anterior segment of the right hepatic lobe appears to extend beyond the liver caps ule. A few additional scattered hepatic lesions also likely extend beyond the hepatic capsule. There is a moderate to large amount of fluid within the abdomen which is intermediate density consistent wi th hemoperitoneum. The exact etiology of the hemoperitoneum is not identified. However, this may be s econdary to hemorrhage from the hepatic lesions extending beyond the hepatic capsule. Intrahepatic bi le duct dilatation again noted. The spleen, adrenal glands, pancreas, and gallbladder are unremarkabl e. No hydronephrosis. Focal hypodensity within the left kidney may represent a renal infarct. The lef t and middle hepatic veins are severely attenuated and may be partially obliterated by the hepatic le sions. No retroperitoneal lymphadenopathy. Dense contrast within the bladder from the recent [facility] exam[facility]. This results in suboptimal evaluation of the bladder. No definite bladder wall thickening. Sm all fat-containing left inguinal hernia. No bowel wall thickening or obstruction. Normal appendix. Mi ld body wall edema. Occlusive thrombus within the left common iliac vein. IMPRESSION: 1. Moderate to large amount of hemoperitoneum. The etiology is not clearly identified on this study b ut may be secondary to the multiple hepatic masses which extend beyond the hepatic capsule. 2. Interval progression of the hepatic metastatic disease. 3. Focal left renal infarct. 4. No bowel wall thickening or obstruction. 5. Osteoblastic metastatic disease again noted. 6. Occlusive thrombus within the left common iliac vein. 7. Additional findings as described above. ACT 112: Negative or not required by law. Electronically signed by: Main Scott M.D. 08/19/2023 7:06 PM
--- NOTE | 2023-08-19 20:41 | History & Physical Report ---
Date of Service August 19, 2023 Assessment & Plan (1) Comfort measures only status: (2) Bone metastases: (3) Brain metastases: (4) Liver metastases: (5) DVT (deep venous thrombosis): (6) Acute hyponatremia: (7) Elevated bilirubin: (8) Adenocarcinoma of left lung, stage 4: Plan Patient to be admitted to the hospital for comfort measures only He does still want to eat until he cannot Medications and protocol as per comfort measures only status order set Family is present in the room, and understands and is agreeable with patient wishes History of Present Illness Chief Complaint: The patient presented to the emergency department with concerns regarding increasing shortness of breath and abdominal distention, decreased appetite with increasing weight loss and dark urine with jaundice noted. Primary Care Provider: Jaydon Alexander DO The patient is a 53-year-old male with a past medical history including DVT, PE, bone/brain/liver metastases, adenocarcinoma of lung stage IV, presently undergoing immunotherapy with Keytruda that began this past week. Patient presents with symptoms as noted above Significant laboratories: WBC 27.11, hemoglobin 7.8, hematocrit 21.7, platelets 122, INR 1.5, sodium 122, glucose 134, total bilirubin 21.2, AST 147, ALT 156, alkaline phosphatase 1661, troponin 45.5. CT angiography of chest shows age-indeterminate pulmonary emboli bilateral lower lobes, likely chronic. Hemoperitoneum within the upper abdomen. Hyperdense foci within the right hepatic lobe metastatic lesions likely representing hemorrhage which likely accounts for the upper abdominal intraperitoneal hemorrhage. Multiple new scattered subcentimeter pulmonary nodules suggesting progressive metastatic disease. Redemonstration of 2 cm spiculated left upper lobe lesion. Osteoblastic metastatic disease is again noted. CT abdomen pelvis shows a moderate to large amount of hemoperitoneum may be secondary to the multiple hepatic masses which extend beyond the hepatic capsule. Progression of hepatic and osteoblastic metastatic disease. Occlusive thrombus within the left common iliac vein. Focal left renal infarct. Patient had decided after conversation with the emergency department physician who also had discussions with oncology, that patient has chosen to stop treatment, and would like to be admitted to the hospital for comfort care Allergies Allergy/AdvReac Type Severity Reaction Status Date / Time No Known Allergies Allergy Verified 08/19/23 18:52 Home Medications Medication Instructions Recorded Confirmed Type 2 Chemo Medications 1 dose PO DAILY 08/19/23 08/19/23 History enoxaparin 100 mg/mL subcutaneous 90 mg subcut DAILY 08/19/23 08/19/23 History syringe (Lovenox) oxycodone 5 mg tablet 5 mg PO .Q4-6HR PRN Pain 08/19/23 08/19/23 History Past Med/Surg History Medical History (Updated 08/19/23 @ 19:54 by Kishore Reddy M.D.) Adenocarcinoma of left lung, stage 4 Liver metastases Brain metastases s/p brain radiation Bone metastases s/p radiation to T-spine and pelvis Pulmonary emboli DVT (deep venous thrombosis) Surgical History No pertinent past surgical history Family History Father , age 82 COPD (chronic obstructive pulmonary disease) Mother , age 82 Myocardial infarction Social History (Updated 03/17/22 @ 09:16 by Shannan Wharton PA-C) Smoking Status: Current some day smoker Tobacco Type: Cigarettes Second Hand Exposure: Yes (Father smoked 3 packs/day.); Do You Dip or Chew Tobacco: No; Hx Alcohol Use: Yes Alcohol type: beer Alcohol Intake Frequency: Monthly or Less Hx Substance Use: No Preferred Language: Sinhala Communication Ability: Effective 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 Required: No Beliefs That Will Affect Care: None marital status: Current Living Situation: Spouse current occupational status: employed 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 The review of systems is otherwise negative other than for that already noted above, and at least 10 systems have been reviewed. Physical Exam Physical Exam: The patient is awake, alert and oriented 3, well developed and well nourished, normocephalic and atraumatic, lying in bed and in no acute distress. HEENT--PERRL, EOMI, scleral icterus. Mucous membranes and oropharynx normal Neck--supple. No JVD. No bruits. Thyroid normal, trachea midline, no adenopathy. Heart--normal S1 and S2. No murmurs, rubs or gallops. Lungs--clear bilaterally, no respiratory distress, no accessory muscle use. Abdomen--normal bowel sounds and soft. Nontender. Mildly distended Extremities--no edema Dermatologic--jaundice Neurologic--cranial nerves II through XII grossly intact. Rheumatologic-- Limited exam Psychiatric--normal affect. Results & Data Results & Data Vital Signs (Past 12 Hours) Vital Signs Temp Pulse Pulse Resp BP BP Pulse Ox 08/19/23 20:31 82 18 148/93 H 96 08/19/23 18:43 111 H 08/19/23 18:19 109 H 27 H 125/93 99 08/19/23 18:19 98 08/19/23 16:14 157/107 H 99 08/19/23 14:58 36.2 C L 117 H 18 135/78 99 08/19/23 14:58 O2 Del Method 08/19/23 20:31 Room Air 08/19/23 18:43 08/19/23 18:19 Room Air 08/19/23 18:19 Room Air 08/19/23 16:14 Room Air 08/19/23 14:58 Room Air 08/19/23 14:58 Room Air Laboratory Results Laboratory Results WBC 27.11 K/ul (4.8-10.8) H 08/19/23 15:12 RBC 3.00 M/uL (4.70-6.10) L 08/19/23 15:12 Hgb 7.8 g/dl (14.0-18.0) L 08/19/23 18:04 Hct 21.7 % (42.0-52.0) L 08/19/23 18:04 MCV 83.7 fL (80.0-100.0) 08/19/23 15:12 MCH 30.0 pg (25.0-34.0) 08/19/23 15:12 MCHC 35.9 g/dL (32.0-36.0) 08/19/23 15:12 RDW Std Deviation 52.3 fL (36.4-46.3) H 08/19/23 15:12 RDW Coeff of Marizol 17.6 % (11.5-14.5) H 08/19/23 15:12 Plt Count 122 K/uL (130-400) L 08/19/23 15:12 MPV 11.3 fL (9.4-12.4) 08/19/23 15:12 Immature Gran % (Auto) 5.1 % 08/19/23 15:12 Neut % (Auto) 72.2 % 08/19/23 15:12 Lymph % (Auto) 2.8 % 08/19/23 15:12 Placer % (Auto) 13.8 % 08/19/23 15:12 Eos % (Auto) 5.7 % 08/19/23 15:12 Baso % (Auto) 0.4 % 08/19/23 15:12 Neut # (Auto) 19.60 K/uL (1.40-6.50) H 08/19/23 15:12 Lymph # (Auto) 0.75 K/uL (1.20-3.40) L 08/19/23 15:12 Placer # (Auto) 3.74 K/uL (0.11-0.59) H 08/19/23 15:12 Eos # (Auto) 1.54 K/uL (0.00-0.50) H 08/19/23 15:12 Baso # (Auto) 0.10 K/uL (0.00-0.20) 08/19/23 15:12 Immature Gran # (Auto) 1.38 K/uL (0.01-0.20) H 08/19/23 15:12 RBC Morphology Unremarkable 08/19/23 15:12 PT 16.5 Seconds (9.0-12.0) H 08/19/23 15:12 INR 1.5 (0.9-1.1) H 08/19/23 15:12 APTT 33.8 Seconds (21.0-31.0) H 08/19/23 15:12 PTT Ratio 1.2 08/19/23 15:12 Sodium 122 mmol/L (136-145) L 08/19/23 15:12 Potassium 4.8 mmol/L (3.5-5.1) 08/19/23 15:12 Chloride 89 mmol/L (98-107) L 08/19/23 15:12 Carbon Dioxide 23 mmol/L (21-32) 08/19/23 15:12 Anion Gap 10 (3-11) 08/19/23 15:12 BUN 17 mg/dl (6-23) 08/19/23 15:12 Creatinine 0.82 mg/dl (0.6-1.4) 08/19/23 15:12 Est Cr Clr Drug Dosing Not Reportable 08/19/23 15:12 Est GFR ( Amer) 117.0 ml/min 08/19/23 15:12 Est GFR (Non-Af Amer) 101.0 ml/min 08/19/23 15:12 BUN/Creatinine Ratio 20.7 (10-20) H 08/19/23 15:12 Glucose 134 mg/dl (70-99(Fasting)) H 08/19/23 15:12 Calcium 7.9 mg/dl (8.6-10.3) L 08/19/23 15:12 Magnesium 2.3 mg/dl (1.7-2.4) 08/19/23 15:12 Total Bilirubin 21.2 mg/dl (0.2-1.0) H 08/19/23 15:12 AST 147 U/L (13-39) H 08/19/23 15:12 ALT 156 U/L (7-52) H 08/19/23 15:12 Alkaline Phosphatase 1661 U/L (34-104) H 08/19/23 15:12 Ammonia TNP 08/19/23 15:12 Troponin I High Sens 45.5 pg/ml (0-20) H 08/19/23 16:55 Total Protein 5.5 gm/dl (6.0-8.3) L 08/19/23 15:12 Albumin 3.2 gm/dl (3.4-5.0) L 08/19/23 15:12 Globulin 2.3 gm/dl (2.5-4.0) L 08/19/23 15:12 Albumin/Globulin Ratio 1.4 (0.9-2) 08/19/23 15:12 Blood Type O Positive 08/19/23 17:43 Antibody Screen NEGATIVE 08/19/23 17:43 Impressions Chest CTA 11/12/23 15:02 CHEST CTA for PULMONARY ARTERIES CT DOSE: 451.29 mGy.cm HISTORY: Shortness of breath, HX OF PE/DVT, METASTATIC LUNG CA TECHNIQUE: Multiaxial CT images of the chest were performed following the intravenous administration of contrast to evaluate the pulmonary arteries. 3D/Maximal intensity projection images were also obtained. Sagittal and coronal reformations were also reviewed. A dose lowering technique was utilized adhering to the principles of ALARA. COMPARISON STUDY: Abdominal MRI 07/16/2023. PET CT 07/05/2023. FINDINGS: Limited views of the upper abdomen demonstrate the patient's known hepatic metastatic disease and intrahepatic bile duct dilatation. Small to moderate amount of fluid within the upper abdomen which appears to be intermediate density. Therefore, this likely represents hemoperitoneum. Hyperdense foci within the right hepatic lobe are partially visualized and likely represent hemorrhage associated with the hepatic lesions. This likely accounts for the upper abdominal intraperitoneal hemorrhage. Normal caliber thoracic aorta with no evidence for a dissection. There is elevation of the right hemidiaphragm. Aortic few nonocclusive linear filling defects seen within the bilateral lower lobe and lingular pulmonary arteries. These are consistent with age indeterminate pulmonary emboli. These favor chronic nonocclusive pulmonary emboli. No evidence for right-sided heart strain. No pleural or pericardial effusions. Scattered osteoblastic metastatic disease is again noted. This is similar to the prior studies. Chronic pathologic compression fractures also noted within the thoracic spine. No mediastinal or hilar lymphadenopathy. There is again noted a 2 cm spiculated lesion within the right upper lobe. There are multiple additional new scattered subcentimeter pulmonary nodules seen within the lungs. These likely represent metastatic disease. Right basilar linear densities favor subsegmental atelectasis or scarring. The central airways are patent. No pneumothorax. IMPRESSION: 1. Linear/weblike nonocclusive filling defects seen within the bilateral lower lobe pulmonary arteries consistent with age indeterminate pulmonary emboli. These favor chronic pulmonary emboli. 2. Small to moderate amount of intermediate density fluid within the upper abdomen likely representing hemoperitoneum. Hyperdense foci within the right hepatic lobe metastatic lesions likely representing hemorrhage. This likely accounts for the upper abdominal intraperitoneal hemorrhage. 3. Multiple new scattered subcentimeter pulmonary nodules likely representing progressive metastatic disease. 4. Redemonstration of the 2 cm spiculated left upper lobe lesion. 5. Osteoblastic metastatic disease again noted. ACT 112: Negative or not required by law. Electronically signed by: Main Scott M.D. 08/19/2023 5:04 PM Abdomen/Pelvis CT 08/19/23 17:[address] WITH IV CONTRAST CT DOSE: 856.9 mGy.cm HISTORY: Intra-abdominal hemorrhage. bleeding, cancer liver TECHNIQUE: Multiaxial CT images of the abdomen and pelvis were performed following the use of intravenous contrast. A dose lowering technique was utilized adhering to the principles of ALARA. COMPARISON STUDY: Chest CTA 08/19/2023. PET CT 07/05/2023. Abdominal MRI 07/16/2023. FINDINGS: Multiple new subcentimeter pulmonary nodules are noted at the lung bases. This suggests progressive metastatic disease. No pneumoperitoneum. No pneumatosis. 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 This is most pronounced within the right iliac bone. Old compression deformities again noted within the thoracic spine. Pulmonary emboli are better present on the same day chest CT. Significant increase in size and number of the extensive hepatic metastatic disease. The dominant lesion within the anterior segment of the right hepatic lobe appears to extend beyond the liver capsule. A few additional scattered hepatic lesions also likely extend beyond the hepatic capsule. There is a moderate to large amount of fluid within the abdomen which is intermediate density consistent with hemoperitoneum. The exact etiology of the hemoperitoneum is not identified. However, this may be secondary to hemorrhage from the hepatic lesions extending beyond the hepatic capsule. Intrahepatic bile duct dilatation again noted. The spleen, adrenal glands, pancreas, and gallbladder are unremarkable. No hydronephrosis. Focal hypodensity within the left kidney may represent a renal infarct. The left and middle hepatic veins are severely attenuated and may be partially obliterated by the hepatic lesions. No retroperitoneal lymphadenopathy. Dense contrast within the bladder from the recent CT examination. This results in suboptimal evaluation of the bladder. No definite bladder wall thickening. Small fat-containing left inguinal hernia. No bowel wall thickening or obstruction. Normal appendix. Mild body wall edema. Occlusive thrombus within the left common iliac vein. IMPRESSION: 1. Moderate to large amount of hemoperitoneum. The etiology is not clearly identified on this study but may be secondary to the multiple hepatic masses which extend beyond the hepatic capsule. 2. Interval progression of the hepatic metastatic disease. 3. Focal left renal infarct. 4. No bowel wall thickening or obstruction. 5. Osteoblastic metastatic disease again noted. 6. Occlusive thrombus within the left common iliac vein. 7. Additional findings as described above. ACT 112: Negative or not required by law. Electronically signed by: Main Scott M.D. 08/19/2023 7:06 PM Code Status & VTE Plan Code Status DNR/DNI Patient to be admitted for comfort measures VTE Prophylaxis Plan VTE Prophylaxis will be ordered: Yes PG Care Time/CCT Total # of Minutes Spent Total Time Spent with Patient: Total time spent is greater than 50% in coordination of care (as documented) at patient's floor/unit and/or counseling patient: Coding Level of Care Code 65602 INT INP/OBS CARE 2/55MIN Diagnoses Comfort measures only status Z51.5 Bone metastases C79.51 Brain metastases C79.31 Liver metastases C78.7 DVT (deep venous thrombosis) I82.409 Acute hyponatremia E87.1 Elevated bilirubin R17 Adenocarcinoma of left lung, stage 4 C34.92
[2023-08-19] MEDS ORDERED: LORazepam 0.5 MG in SYRINGE 0.25 ML IV PRN (22:02)
[2023-08-19] MEDS ORDERED: PROMETHAZINE HCL 12.5 MG in SODIUM CHLORIDE 0.9% 50 ML IV PRN (22:02)
[2023-08-19] MEDS ORDERED: ONDANSETRON INJ 2 MG/ML 2 ML VIAL IV PRN (22:02)
[2023-08-19] MEDS ORDERED: ATROPINE SULFATE 1% OP SOLN 5 ML BTL SL PRN (22:02)
[2023-08-19] MEDS ORDERED: BACLOFEN 10 MG TAB PO PRN (22:02)
[2023-08-20] MEDS ORDERED: oxyCODONE HCL IR 5 MG TAB (IMMEDIATE RELEASE) PO STA (01:52)
[2023-08-20] MEDS: MoRPHine SULFATE 2 MG/ML CARP IV PRN ×3 (02:43→17:46)
--- NOTE | 2023-08-20 06:26 | Electrocardiogram Report ---
Test Reason : Blood Pressure : / mmHG Vent. Rate : 117 BPM Atrial Rate : 117 BPM P-R Int : 150 ms QRS Dur : 150 ms QT Int : 316 ms P-R-T Axes : 043 059 048 degrees QTc Int : 440 ms Poor data quality, interpretation may be adversely affected Sinus tachycardia Non-specific intra-ventricular conduction block Abnormal ECG When compared with ECG of 05-APR-2022 13:33, QRS voltage has decreased Confirmed by Abhinav Campos ([id number]) on 08/20/2023 6:25:41 AM Referred By: Confirmed By:Abhinav Campos
--- NOTE | 2023-08-20 07:21 | Hospitalist Progress Note ---
Date of Service August 20, 2023 Assessment & Plan (1) Comfort measures only status: (2) Bone metastases: (3) Brain metastases: (4) Liver metastases: (5) DVT (deep venous thrombosis): (6) Acute hyponatremia: (7) Elevated bilirubin: (8) Adenocarcinoma of left lung, stage 4: Plan 53-year-old male with a past medical history including DVT, PE, bone/brain/liver metastases, adenocarcinoma of lung stage IV, presently undergoing immunotherapy with Keytruda that began this past week. Comfort measures only status: Bone metastases Brain metastases Liver metastases Adenocarcinoma of left lung, stage 4: -CT abdomen pelvis shows a moderate to large amount of hemoperitoneum may be secondary to the multiple hepatic masses which extend beyond the hepatic capsule. Progression of hepatic and osteoblastic metastatic disease. -CT angiography of chest shows age-indeterminate pulmonary emboli bilateral lower lobes, likely chronic. -Admitted to the hospital for comfort measures only -Regular diet -Medications and protocol as per comfort measures only status order set -Case management consulted -Continue nausea, pain management Code: DNR: comfort measures only Diet: Regular DVT ppx: none Admission and Anticipated Discharge Date Admission Date: August 19, 2023 Supervising Physician Co-Signing Physician Notes Resident Physician Supervision Note: I independently interviewed and examined the patient and verified the campbell history and physical, reviewed labs and image studies and agree with resident findings and care plan. Subjective The patient is a 53-year-old male with a past medical history including DVT, PE, bone/brain/liver metastases, adenocarcinoma of lung stage IV, presently undergoing immunotherapy with Keytruda that began this past week. Significant laboratories: WBC 27.11, hemoglobin 7.8, hematocrit 21.7, platelets 122, INR 1.5, sodium 122, glucose 134, total bilirubin 21.2, AST 147, ALT 156, alkaline phosphatase 1661, troponin 45.5. CT angiography of chest shows age-indeterminate pulmonary emboli bilateral lower lobes, likely chronic. Hemoperitoneum within the upper abdomen. Hyperdense foci within the right hepatic lobe metastatic lesions likely representing hemorrhage which likely accounts for the upper abdominal intraperitoneal hemorrhage. Multiple new scattered subcentimeter pulmonary nodules suggesting progressive metastatic disease. Redemonstration of 2 cm spiculated left upper lobe lesion. Osteoblastic metastatic disease is again noted. CT abdomen pelvis shows a moderate to large amount of hemoperitoneum may be secondary to the multiple hepatic masses which extend beyond the hepatic capsule. Progression of hepatic and osteoblastic metastatic disease. Occlusive thrombus within the left common iliac vein. Focal left renal infarct. Patient had decided after conversation with the emergency department physician who also had discussions with oncology, that patient has chosen to stop treatment, and would like to be admitted to the hospital for comfort care Review of Systems Review of Systems: All systems reviewed & are unremarkable except as noted in HPI & below Physical Exam Physical Exam: The patient is awake, alert and oriented 3, well developed and well nourished, normocephalic and atraumatic, lying in bed and in no acute distress. HEENT--PERRL, EOMI, scleral icterus. Mucous membranes and oropharynx normal Neck--supple. No JVD. No bruits. Thyroid normal, trachea midline, no adenopathy. Heart--normal S1 and S2. No murmurs, rubs or gallops. Lungs--clear bilaterally, no respiratory distress, no accessory muscle use. Abdomen--normal bowel sounds and soft. Nontender. Mildly distended Extremities--no edema Dermatologic--jaundice Neurologic--cranial nerves II through XII grossly intact. Rheumatologic-- Limited exam Psychiatric--normal affect. Results & Data Results & Data Vital Signs (Past 12 Hours) Vital Signs Pulse Resp BP Pulse Ox O2 Del Method 08/19/23 21:27 Room Air 08/19/23 20:31 82 18 148/93 H 96 Room Air Resident Activity Tracking Resident Involvement: Resident Care Provided Care Provided: Adult Hospital Medicine
[2023-08-20 08:05] VITALS: BP 121/83; PULSE 113; RESP 16; TEMP 98.2; O2SAT 97
[2023-08-20] MEDS ORDERED: LACTATED RINGER'S 1,000 ML IV SCH (09:00)
[2023-08-20] MEDS ORDERED: diphenhydrAMINE 50 MG/ML VIAL IV PRN (10:06)
[2023-08-20] MEDS: MoRPHine SULFATE 10 MG/0.5 ML UDP PO PRN ×2 (18:50→22:20)
[2023-08-20] MEDS ORDERED: MoRPHine SULFATE 2 MG/ML CARP IV PRN (20:58)
[2023-08-20] MEDS ORDERED: HYDROmorphone INJ 0.5 MG/0.5 ML SYR IV PRN (22:48)
[2023-08-20] MEDS: HYDROmorphone INJ 1 MG/ML SYRINGE IV PRN (23:26)
[2023-08-21] MEDS: HYDROmorphone INJ 1 MG/ML SYRINGE IV PRN (04:09)
--- NOTE | 2023-08-21 06:49 | Hospitalist Progress Note ---
Date of Service August 21, 2023 Assessment & Plan (1) Comfort measures only status: (2) Bone metastases: (3) Brain metastases: (4) Liver metastases: (5) DVT (deep venous thrombosis): (6) Acute hyponatremia: (7) Elevated bilirubin: (8) Adenocarcinoma of left lung, stage 4: Plan 53-year-old male with a past medical history including DVT, PE, bone/brain/liver metastases, adenocarcinoma of lung stage IV, presently undergoing immunotherapy with Keytruda that began this past week. Comfort measures only status: Bone metastases Brain metastases Liver metastases Adenocarcinoma of left lung, stage 4: -CT abdomen pelvis shows a moderate to large amount of hemoperitoneum may be secondary to the multiple hepatic masses which extend beyond the hepatic capsule. Progression of hepatic and osteoblastic metastatic disease. -CT angiography of chest shows age-indeterminate pulmonary emboli bilateral lower lobes, likely chronic. -Admitted to the hospital for comfort measures only -Regular diet -Medications and protocol as per comfort measures only status order set -Case management consulted -Palliative care consulted -Continue nausea, pain management Code: DNR: comfort measures only Diet: Regular DVT ppx: none Admission and Anticipated Discharge Date Admission Date: August 19, 2023 Subjective The patient is a 53-year-old male with a past medical history including DVT, PE, bone/brain/liver metastases, adenocarcinoma of lung stage IV, presently undergoing immunotherapy with Keytruda that began this past week. Significant laboratories: WBC 27.11, hemoglobin 7.8, hematocrit 21.7, platelets 122, INR 1.5, sodium 122, glucose 134, total bilirubin 21.2, AST 147, ALT 156, alkaline phosphatase 1661, troponin 45.5. CT angiography of chest shows age-indeterminate pulmonary emboli bilateral lower lobes, likely chronic. Hemoperitoneum within the upper abdomen. Hyperdense foci within the right hepatic lobe metastatic lesions likely representing hemorrhage which likely accounts for the upper abdominal intraperitoneal hemorrhage. Multiple new scattered subcentimeter pulmonary nodules suggesting progressive metastatic disease. Redemonstration of 2 cm spiculated left upper lobe lesion. Osteoblastic metastatic disease is again noted. CT abdomen pelvis shows a moderate to large amount of hemoperitoneum may be secondary to the multiple hepatic masses which extend beyond the hepatic capsule. Progression of hepatic and osteoblastic metastatic disease. Occlusive thrombus within the left common iliac vein. Focal left renal infarct. Patient had decided after conversation with the emergency department physician who also had discussions with oncology, that patient has chosen to stop treatment, and would like to be admitted to the hospital for comfort care Review of Systems Review of Systems: as per hpi Physical Exam Physical Exam: The patient is awake, alert and oriented 3, well developed and well nourished, normocephalic and atraumatic, lying in bed and in no acute distress. HEENT--PERRL, EOMI, scleral icterus. Mucous membranes and oropharynx normal Neck--supple. No JVD. No bruits. Thyroid normal, trachea midline, no adenopathy. Heart--normal S1 and S2. No murmurs, rubs or gallops. Lungs--clear bilaterally, no respiratory distress, no accessory muscle use. Abdomen--normal bowel sounds and soft. Nontender. Mildly distended Extremities--no edema Dermatologic--jaundice Psychiatric--normal affect. Results & Data Results & Data Vital Signs (Past 12 Hours) Vital Signs O2 Del Method 08/20/23 22:53 Room Air Resident Activity Tracking Resident Involvement: Resident Care Provided Care Provided: Adult Hospital Medicine
[2023-08-21] MEDS ORDERED: MoRPHine SULFATE 2 MG/ML CARP IV PRN ×3 (09:28→14:54)
[2023-08-21] MEDS ORDERED: HYDROmorphone INJ 0.5 MG/0.5 ML SYR IV PRN (13:23)
--- NOTE | 2023-08-21 14:19 | Palliative Care Consultation ---
"Date of Consultation August 21, 2023 Assessment & Plan (1) Cancer related pain: Very severe pain and air hunger. After discussion with Dr Ibanez and his , Ena, we agreed to begin a Morphine JEWELRY DESIGNER with 2mg per hour and 2mg JEWELRY DESIGNER Bolus q10min prn. Order written and reviewed with nursing. We discussed the rationale for rapidly control of increasing symptomatic distress yuliya since he is able to clearly discern progressively worsening resp status. He and his reaffirm a clear desire to focus on comfort, his is yuliya clear about desire for and needing assurance he will not suffer. She notes this is what matters the most for them. (2) Dyspnea and respiratory abnormalities: See #1 above (3) Palliative care by specialist: Met with pt/family and family friends x 3 at bedside: Provided overview of Palliative Medicine, a subspecialty that provides specialized medical care for people living with a serious illness by offering a focus on quality of life. Palliative Medicine is often conflated with hospice: I advised patient/family that Palliative and hospice can be partners but we are not the same. Palliative Medicine works to improve QOL through reduction of symptom burden/more control over their illness, for both the patient and family. Palliative medicine clinicians are board certified, specially-trained and another member of the patient's medical care team. We often provide an extra layer of support because our care is based on the needs of the patient, not the prognosis; as such, it's appropriate at any age/advancing stage of a serious illness and can be provided along with curative treatment. Palliative Medicine clinicians are also trained in advanced communication methodologies, to facilitate complex discussions about advanced illness planning, which are needed to help assure that the treatment choices match the patient's goals, aka delivering Goal Concordant care. (4) Advanced care planning/counseling discussion: Per his preference, I met face to face for 35min with Dr Ibanez, his Ena, family friends x 3 at bedside. We reviewed the overall decline, presentation to [facility] , conversations to date with [facility] and out medicine team. They are all aware he is rapidly declining. He asked me frankly about time frame. I reviewed palliative prognostics as noted below and advised likely days to a week or so. His rapid symptom evolution and declining are most concerning. For Oncology Patients: Patient's Palliative Prognostic Score (PaP) Score = 17.5 points / Interpretation:30-day survival probability <30% 0 - 5.5: 30-day survival prob ability >70% | 5.6 - 11.0: 30-day survival probability 30-70% | 11.1 - 17.5: 30- day survival probability <30% Patient's Palliative Prognostic Index (PPI) Score = 11 points / Note:If the PPI is greater than 6.0, survival is less than three weeks (Sensitivity - 80%; Specificity - 85%). (5) Counseling regarding end of life decision making: (6) Nausea alone: (7) Anxiety as acute reaction to exceptional stress: (8) Adenocarcinoma of left lung, stage 4: (9) Liver metastases: (10) Brain metastases: (11) Bone metastases: (12) Pulmonary emboli: (13) Hemoperitoneum: Plan * SKIN CARE TECHNICIAN, start MS IV JEWELRY DESIGNER for comfort and symptom mgt * ACP d/w pt an family as noted above * ADDENDUM: minutes before JEWELRY DESIGNER was started, Dr. Ibanez had acute decline with resp failure, less responsive and started to have more agonal, labored respirations. He was transitioning to active dying. We proceeded to start the JEWELRY DESIGNER infusion of 2mg per hour but he within minutes and therefore had little to no benefit from JEWELRY DESIGNER infusion because it did not get to run long enough. I was present for his end of life. I pronounced him at 324pm. I spoke with and family from [facility] at bedside. I reviewed the changes of active dying he was moving through, including but not limited to sleeping more, disorientation when awake, restlessness, diminished senses/inability to respond to stimulus although ability to be aware of them remains intact longer, changes in body temperatures, skin changes/mottling/cyanosis, respiratory pattern changes, oral secretions. Family verbalized understanding. They reiterate the goal is to assure a peaceful . * I remained on the nursing unit the entire duration of this visit and frequently reassessed pt during his active dying. * Primary team notified. Nursing present with me. * note completed. Thank you for allowing us to participate in the ongoing care of this patient. Please don't hesitate to call or page with any additional concerns. Dr. Filomena Ordoñez [facility] Director, Palliative Care History of Present Illness Reason for Consultation: Adenocarcinoma stage 4, bone/brain/liver metastases Attending Physician: Rhiannon Mina MD History of Present Illness Dr. Ibanez presented 08/19/23 for increasing shortness of breath and abdominal distention, decreased appetite with increasing weight loss and dark urine with jaundice noted. In the ED, significant labs showed WBC 27.11, hemoglobin 7.8, hematocrit 21.7, platelets 122, INR 1.5, sodium 122, glucose 134, total bilirubin 21.2, AST 147, ALT 156, alkaline phosphatase 1661, troponin 45.5. Imaging as follows: - CT angiography of chest shows age-indeterminate pulmonary emboli bilateral lower lobes, likely chronic. Hemoperitoneum within the upper abdomen. Hyperdense foci within the right hepatic lobe metastatic lesions likely representing hemorrhage which likely accounts for the upper abdominal intraperitoneal hemorrhage. Multiple new scattered subcentimeter pulmonary nodules suggesting progressive metastatic disease. Redemonstration of 2 cm spiculated left upper lobe lesion. Osteoblastic metastatic disease is again noted. - CT abdomen pelvis shows a moderate to large amount of hemoperitoneum may be secondary to the multiple hepatic masses which extend beyond the hepatic capsule. ++Progression of hepatic and osteoblastic metastatic disease. ++Occlusive thrombus within the left common iliac vein. Focal left renal infarct. -CT abdomen pelvis shows a moderate to large amount of hemoperitoneum may be secondary to the multiple hepatic masses which extend beyond the hepatic capsule. Progression of hepatic and osteoblastic metastatic disease. -CT angiography of chest shows age-indeterminate pulmonary emboli bilateral lower lobes, likely chronic. 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.) Allergies Allergy/AdvReac Type Severity Reaction Status Date / Time No Known Allergies Allergy Verified 08/19/23 18:52 Home Medications Medication Instructions Recorded Confirmed Type 2 Chemo Medications 1 dose PO DAILY 08/19/23 08/19/23 History enoxaparin 100 mg/mL subcutaneous 90 mg subcut DAILY 08/19/23 08/19/23 History syringe (Lovenox) oxycodone 5 mg tablet 5 mg PO .Q4-6HR PRN Pain 08/19/23 08/19/23 History Patient History Medical History (Updated 08/21/23 @ 15:32 by Filomena Ordoñez DNP) Adenocarcinoma of left lung, stage 4 Liver metastases Brain metastases s/p brain radiation Bone metastases s/p radiation to T-spine and pelvis Pulmonary emboli DVT (deep venous thrombosis) Surgical History No pertinent past surgical history Family History Father , age 82 COPD (chronic obstructive pulmonary disease) Mother , age 82 Myocardial infarction Social History (Updated 03/17/22 @ 09:16 by Shannan Wharton PA-C) Smoking Status: Current some day smoker Tobacco Type: Cigarettes Second Hand Exposure: Yes (Father smoked 3 packs/day.); Do You Dip or Chew Tobacco: No; Hx Alcohol Use: Yes Alcohol type: beer Alcohol Intake Frequency: Monthly or Less Hx Substance Use: No Preferred Language: Indonesian Communication Ability: Effective Furnace Repairer Helper Required: No Beliefs That Will Affect Care: Spiritual marital status: Current Living Situation: Spouse current occupational status: employed 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[employer]; 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 How many Children do You have: 0 Feels Safe at Home: Yes Safety Concerns: Feels Safe At This Time Assistive Devices: Glasses Review of Systems Review of Systems: All systems reviewed & are unremarkable except as noted in Subjective Physical Exam Physical Exam: Frail, thin male with significant resp and physical distress Air hunger and use of accessory muscles; ++conversational dyspnea bitemp wasting, PERRLA, EOMIs; +icteric sclera diminished breath sounds, few crackles Tachy S1S2, + JVD Abd tense, distended and guarded; +TTP Generalized weakness Skin jaundiced, cool to touch AAOx3, intermittent mild loss of focus but very easily reorients Results & Data Vital Signs (Past 12 Hours) Vital Signs O2 Del Method 08/21/23 07:53 Room Air Laboratory Results see HPI, data reviewed Diagnostic Findings see HPI, data reviewed PG Care Time/CCT Total # of Minutes Spent Total Time Spent: 150 Total Time Spent with Patient: Total time spent is greater than 50% in coordination of care (as documented) at patient's floor/unit and/or counseling patient: I spent 150 minutes overall addressing this case: 20 min in medical data review/discussion with referring provider(s) and/or preparation for the visit 50 min in direct interaction with the patient/exam 35 min in Advance Care Planning/Goals of Care discussions as detailed above in note (must be >16min) 15 min in subsequent review and synthesis of assessment and plan 30 min communicating with other providers regarding the patient's case: Prolonged Care Time Prolonged Care Time: Yes Advanced Care Planning 40480 Advanced Care Planning 30 Min 40701 Advanced Care Planning Additional 30 [place] [address] IN/OBS CONSULT LVL 5,80M Patient Type New History Comprehensive Exam Comprehensive Medical Decision Making High Complexity Diagnoses Cancer related pain G89.3 Dyspnea and respiratory abnormalities R06.00; R06.89 Palliative care by specialist Z51.5 Advanced care planning/counseling discussion Z71.89 Counseling regarding end of life decision making Z71.89 Nausea alone R11.0 Anxiety as acute reaction to exceptional stress F41.1; F43.0 Adenocarcinoma of left lung, stage 4 C34.92 Liver metastases C78.7 Brain metastases C79.31 Bone metastases C79.51 Pulmonary emboli I26.99 Hemoperitoneum K66.1 Additional Codes Advanced Care Planning - 59674 Advanced Care Planning 30 Min: 28679 Advanced Care Planning 30 Min ([id number]) Advanced Care Planning - 87756 Advanced Care Planning Additional 30 Min: 33891 Advanced Care Planning Additional 30 Min ([id number]) Prolonged Care Time - Prolonged Care Time: Yes ([id number])"
[2023-08-21] MEDS ORDERED: MoRPHine SULFATE PCA 30 MG/30 ML IV PRN (14:48)
[2023-08-21] MEDS ORDERED: NALOXONE HCL 0.4 MG/1 ML VIAL/CARP IV PRN (14:48)
[2023-08-21] MEDS ORDERED: ONDANSETRON INJ 2 MG/ML 2 ML VIAL IV PRN (14:54)
[2023-08-21] MEDS ORDERED: LORazepam 1 MG in SYRINGE 0.5 ML IV PRN (14:58)
[2023-08-21] MEDS ORDERED: SODIUM CHLORIDE 0.9% 1,000 ML IV SCH (15:00)
[2023-08-21] MEDS ORDERED: HALOPERIDOL ORAL SOLN 2 MG/ML PO PRN (15:10)
--- NOTE | 2023-08-21 15:28 | Death Pronouncement Note ---
Date of Service August 21, 2023 Pronouncement Note Admission Date Admission Date: August 19, 2023 Contributing Factors (1) Cancer related pain: (2) Dyspnea and respiratory abnormalities: (3) Palliative care by specialist: (4) Advanced care planning/counseling discussion: (5) Counseling regarding end of life decision making: (6) Nausea alone: (7) Anxiety as acute reaction to exceptional stress: (8) Adenocarcinoma of left lung, stage 4: (9) Liver metastases: (10) Brain metastases: (11) Bone metastases: (12) Pulmonary emboli: (13) Hemoperitoneum: Additional Data Attending physician: Rhiannon Mina MD
--- NOTE | 2023-08-21 15:33 | Death Pronouncement Note ---
Date of Service August 21, 2023 Pronouncement Note Admission Date August 19, 2023 Date and Time of Date of : 08/21/23 Time of : 15:24 Preliminary Cause of (1) Chronic hypoxemic respiratory failure: (2) Cardiopulmonary arrest: (3) Pulmonary emboli: (4) Adenocarcinoma of left lung, stage 4: Contributing Factors Widespread, terminal metastatic Stage 4+ adenoca lung with mets to bone, brain and liver with acute on chronic pulm emboli, progressive lung tumor burden, pneumoperitoneum. 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 He was admitted from home with worsening PS and pain, which progressed quickly to include severe SOB. Following discussions with primary med and his OSH oncologist Dr Wynn, decision was made to move to SHUTTLE FINAL INSPECTOR with focus on symptom mgt. Palliative Med was consulted to assist with EOL care. Patient reported severe air hunger and abd, back and flank pain unrelieved by current MS IV prn dose. He did not tolerate PRN IV Dilaudid which made him confused. After a family discussion with pt and his , SHUTTLE FINAL INSPECTOR plan of care with MS IV MANAGER PLANNING was agreed upon however, patient began rapidly declining in the minutes prior to MANAGER PLANNING initiation and then continued to decline with rapid progression to . He was pronounced at 3:24pm. There was no pupillary reflex, no resp effort, no heart beat, no pulse. Additional Data Confirmation of : no pulse, no respirations, no heart sounds and pupils fixed and dilated Pronouncement Performed By: Advanced Practice Provider (KAYLIE) (Filomena Ordoñez DNP/Director, Palliative Medicine) Family: at bedside (, family friends from [place] x2) Additional persons at bedside: other (family friends x2) Attending/PCP notified?: Yes Attending physician: Rhiannon Mina MD Was code activated?: No Autopsy requested?: No license registration examiner notified?: No (expected , terminal cancer) Organ bank notified?: No Advance directives: Yes (verbally expressed and reaffirmed ACP wishes and GOC with pt and family) Coding [place] [address] INP/OBS DISCH >30 MIN Patient Type Established History Comprehensive Exam Comprehensive Medical Decision Making High Complexity Diagnoses Chronic hypoxemic respiratory failure J96.11 Cardiopulmonary arrest I46.9 Pulmonary emboli I26.99 Adenocarcinoma of left lung, stage 4 C34.92
--- NOTE | 2023-08-21 15:53 | Discharge Summary ---
Date of Service August 21, 2023 Admission HPI Per Admitting Provider The patient is a 53-year-old male with a past medical history including DVT, PE, bone/brain/liver metastases, adenocarcinoma of lung stage IV, presently undergoing immunotherapy with Keytruda that began this past week. Patient presents with symptoms as noted above Significant laboratories: WBC 27.11, hemoglobin 7.8, hematocrit 21.7, platelets 122, INR 1.5, sodium 122, glucose 134, total bilirubin 21.2, AST 147, ALT 156, alkaline phosphatase 1661, troponin 45.5. CT angiography of chest shows age-indeterminate pulmonary emboli bilateral lower lobes, likely chronic. Hemoperitoneum within the upper abdomen. Hyperdense foci within the right hepatic lobe metastatic lesions likely representing hemorrhage which likely accounts for the upper abdominal intraperitoneal hemorrhage. Multiple new scattered subcentimeter pulmonary nodules suggesting progressive metastatic disease. Redemonstration of 2 cm spiculated left upper lobe lesion. Osteoblastic metastatic disease is again noted. CT abdomen pelvis shows a moderate to large amount of hemoperitoneum may be secondary to the multiple hepatic masses which extend beyond the hepatic capsule. Progression of hepatic and osteoblastic metastatic disease. Occlusive thrombus within the left common iliac vein. Focal left renal infarct. Patient had decided after conversation with the emergency department physician who also had discussions with oncology, that patient has chosen to stop treatment, and would like to be admitted to the hospital for comfort care Admission Exam Per Admitting Provider The patient is awake, alert and oriented 3, well developed and well nourished, normocephalic and atraumatic, lying in bed and in no acute distress. HEENT--PERRL, EOMI, scleral icterus. Mucous membranes and oropharynx normal Neck--supple. No JVD. No bruits. Thyroid normal, trachea midline, no adenopathy. Heart--normal S1 and S2. No murmurs, rubs or gallops. Lungs--clear bilaterally, no respiratory distress, no accessory muscle use. Abdomen--normal bowel sounds and soft. Nontender. Mildly distended Extremities--no edema Dermatologic--jaundice Neurologic--cranial nerves II through XII grossly intact. Rheumatologic-- Limited exam Psychiatric--normal affect. Principal Diagnosis Adenocarcinoma of the lung stage 4 Discharge Exam no pulses, no respirations, no heart sounds, pupils fixed and dilated Discharge Data Allergies Allergy/AdvReac Type Severity Reaction Status Date / Time No Known Allergies Allergy Verified 08/19/23 18:52 Consultations 08/19/23 20:00 ED Decision to Admit Stat 08/21/23 14:11 Consult Palliative Care Routine Ordered Studies 08/19/23 15:02 CT angio chest PE protocol Stat 08/19/23 17:28 CT abd pelvis IV con only Stat Hospital Course (1) Cardiopulmonary arrest: (2) Chronic hypoxemic respiratory failure: (3) Pulmonary emboli: (4) DVT (deep venous thrombosis): (5) Bone metastases: (6) Brain metastases: (7) Liver metastases: (8) Adenocarcinoma of left lung, stage 4: Plan 53-year-old male with a past medical history including DVT, PE, bone/brain/liver metastases, adenocarcinoma of lung stage IV, presently undergoing immunotherapy with Keytruda that began this past week. Patient admitted to hospital for comfort measures only. Medications and protocol as per comfort measures only status order set Patient at 15:24 due to chronic hypoxemic respiratory failure, due to pulmonary emboli, due to advance adenocarcinoma of the lung stage 4 with mets to bone, brain and liver metastases. Total Time Total Time Spent Total Time Spent (In Minutes): see attending attestation Discharge Plan Discharge Items Patient Disposition: Discharge Diagnosis: Chronic Respiratory distress Adenocarcinoma of the lungs stage 4, mets to liver, brain and bone Addtl Attending Provider Instructions: Patient at 15:24 today Due to chronic Respiratory distress due to Adenocarcinoma of the lungs with mets to liver, brain and bones Other Date/Time: 08/21/23 15:24 Supervising Physician Co-Signing Physician Notes Resident Physician Supervision Note: I independently interviewed and examined the patient and verified the campbell history and physical, reviewed labs and image studies and agree with resident findings and care plan. Seen this am - patient was in distress from pain last night and was short of breath this am. IV morphine and hydromorphine were helping. Wanted to discuss with heme/oncology at [facility] regarding any possible treatment - I spoke to Dr. Bowen Wynn - No treatment recommended in setting of progressive cancer and he had referred him to hospice during last visit. Patient and was updated on this conversation. Resident Activity Tracking Resident Involvement: Resident Care Provided Care Provided: [facility]
== END 2023-08-21 18:25 | disposition expired | DRG 951 ==
LOC: ED 14:34 → SUATTDRO 20:41 → 3E 20:41
DX: C78.7 Secondary malignant neoplasm of liver and intrahepatic bile duct; I27.82 Chronic pulmonary embolism; C34.92 Malignant neoplasm of unspecified part of left bronchus or lung; I26.99 Other pulmonary embolism without acute cor pulmonale; E80.6 Other disorders of bilirubin metabolism; C79.31 Secondary malignant neoplasm of brain; K66.1 Hemoperitoneum; J96.11 Chronic respiratory failure with hypoxia; E87.1 Hypo-osmolality and hyponatremia; Z66 Do not resuscitate; C79.51 Secondary malignant neoplasm of bone; Z51.5 Encounter for palliative care; Z92.3 Personal history of irradiation